=== PATIENT | male | born 1965 | race Caucasian/White ===

== ENCOUNTER 2016-09-27 09:34 | Emergency (ER) | payer MEDICAID ==
[2016-09-27 09:42] VITALS: BP 149/92; PULSE 101; RESP 18; TEMP 98.1; O2SAT 94
[2016-09-27] MEDS ORDERED: OXYCODONE/APAP 5/325 TAB PO ONE (09:56)
--- NOTE | 2016-09-27 10:00 | EDPHY ---
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 No instability. No direct trauma or fall. No paresthesia. No sensory motor deficit. PRIMARY CARE PROVIDER: [facility] REVIEW OF SYSTEMS: A ten point review of systems was performed and is negative with the exception of the items mentioned in the HPI PHYSICAL EXAM (Prior to examination, patient consented to physical exam, hands were washed and my usual and customary physical exam procedures followed) 1) GENERAL: Well-developed, well-nourished, alert and oriented. Appears nontoxic, observed ambulating to his exam room with antalgic gait 2) HEAD: Normocephalic 3) HEENT: Pupils equal, round, reactive to light bilaterally. 4) LUNGS: Breathing comfortably. 5) MUSCULOSKELETAL: Exam of the right knee shows soft tissue swelling, focally tender to palpation lateral knee. No pain with axial loading. Normal color normal temperature. . Compartments are soft. Negative Homans, No palpable cord 6) SKIN: normal color normal temperature 7) VASCULAR: DP,PT pulses and cap refill present and brisk distally DIFFERENTIAL DIAGNOSIS: in no particular order including but not limited to fracture, sprain, compartment syndrome, septic arthritis, DVT Procedure: Splint A knee immobilizer splint was applied by ER waste transportation technician. After application of the splint I returned and re-examined the patient. The splint was adequately immobilizing the joint and distal to the splint the patient's circulation and sensation were intact. Patient shows no signs of compartment syndrome. Was given orthopedic precautions. MEDICAL DECISION MAKING Serial evaluations performed on patient. Discussed case with in the ER. Recommended follow up with Orthopedics. I communicated electronically with on-call orthopedics Dr. Whitney who agrees with plan to follow up in office. I discussed the limitations of x-ray in diagnosis of knee pain and injury. At this time I do not think that emergent MRI is currently indicated. However, I have recommended follow-up with Orthopedic surgery and provided this referral information. Informed the patient that outpatient MRI may be indicated. Doubt septic arthritis. Doubt compartment syndrome. Doubt DVT. Smoking Status: Former smoker Constitutional: Initial Vital Signs Temperature (C) 36.7 C 09/27/16 09:35 Heart Rate 101 H 09/27/16 09:35 Respiratory Rate 18 09/27/16 09:35 Blood Pressure 149/92 H 09/27/16 09:35 O2 Sat (%) 94 09/27/16 09:35 O2 Delivery Mode Room Air Allergies/Adverse Reactions: No Known Allergies Allergy (Verified 09/27/16 09:37) Home Medications: Medication Instructions Recorded Carvedilol [Coreg (*)] 3.125 mg PO BIDMEAL #60 tab 03/26/14 Losartan Potassium [Cozaar 25 mg 25 mg PO DAILY #30 tab 03/26/14 (*)] Spironolactone [Aldactone 25 MG 25 mg PO DAILY #30 tab 03/26/14 (*)] Diazepam [Valium 5 MG (*)] 5 mg PO TID PRN #15 tab 02/24/15 Ibuprofen [Motrin (*)] 800 mg PO Q6-8PRN #30 tab 02/24/15 Ranitidine HCl 02/24/15 Trazapam 09/27/16 oxyCODONE/APAP 5/325 [Percocet 1 tab PO Q6 #10 tab 09/27/16 5/325] traZODone [traZODONE 50MG (*)] 50 mg PO 09/27/16 MDM/Departure - MDM Imaging Results: Imaging Impressions Knee X-Ray 09/27/16 09:56 Impression: Possible patellar fracture. Results called to Jairon Pierce at 10:28 AM. Images reviewed by myself Medications Given: Discontinued Medications Oxycodone/Acetaminophen (Percocet 5/325) 1 tab PO EDNOW ONE Stop: 09/27/16 09:57 Last Admin: 09/27/16 10:01 Dose: 1 tab - Depart Disposition: Home, Routine, Self-Care Clinical Impression: Right knee sprain Qualifiers: Encounter type: initial encounter Involved ligament of knee: unspecified ligament Qualified Code(s): S83.91XA - Sprain of unspecified site of right knee , initial encounter Condition: Good Instructions: Knee Sprain (ED) Additional Instructions: Return to the ER immediately if you experience discoloration, have worsening pain, numbness, tingling, or any other symptoms that concern you. If you received x-rays in the emergency department today, be advised, that ligamentous , tendon, muscular, and other non-bony injury cannot be fully ruled out. Try to keep your affected extremity elevated above the level of your chest, and keep cold packs on the affected area, for the next 48 hours. Prescriptions: oxyCODONE/APAP 5/325 [Percocet 5/325] 1 tab PO Q6 #10 tab Referrals: Arnoldo Whitney MD [Medical Doctor] - 2-3 days, call for appt. (Dr. Whitney is an orthopedic surgeon)
== END 2016-09-27 11:25 | disposition home or self-care (01) ==
DX: S83.91XA Sprain of unspecified site of right knee, initial encounter (principal); Z87.891 Personal history of nicotine dependence; X58.XXXA Exposure to other specified factors, initial encounter
CPT/HCPCS: L1830

== ENCOUNTER 2016-10-24 14:07 | Inpatient (IN) | payer MEDICAID ==
[2016-10-24] MEDS ORDERED: IPRATROPIUM/ALBUTEROL 3 ML DEYVIAL ONE (16:20)
[2016-10-24 16:27] LABS: % IMMATURE GRANULYOCYTES 0.1 % (0.0-1.1); ABSOLUTE IMMATURE GRANULOCYTES 0.01 10^3/uL (0.00-0.10); ADD DIFF? NO; ADD MORPH? NO; ADD SCAN? NO; ATYPICAL LYMPHOCYTE FLAG 20 (0-99); FRAGMENT RBC FLAG 0 (0-99); HEMOGLOBIN 15.1 g/dL (13.7-17.5); LEFT SHIFT FLG 0 (0-99); LIPEMIA HEMOLYSIS FLAG 80 (0-99); MEAN CELL HEMOGLOBIN 30.5 pg (27.9-34.1); MEAN CELL HEMOGLOBIN CONCENTR. 33.6 g/dL (32.4-36.7); MEAN CELL VOLUME 90.9 fL (81.5-99.8); MEAN PLATELET VOLUME 10.1 fL (8.7-11.7); PLATELET CLUMPS FLAG 10 (0-99); PLATELET COUNT 135 10^3/uL (150-400); RED BLOOD CELL COUNT 4.95 10^6/uL (4.40-6.38); RED CELL DISTRIBUTION WIDTH 13.2 % (11.5-15.2)
[2016-10-24 16:42] LABS: ANION GAP 8 mEq/L (8-16); CALCIUM 9.1 mg/dL (8.5-10.4); CARBON DIOXIDE 25 mEq/l (22-31); CHLORIDE 106 mEq/L (97-110); CREATININE 0.9 mg/dL (0.7-1.3); GLOMERULAR FILTRATION RATE > 60; GLUCOSE 96 mg/dL (70-100); POTASSIUM 4.3 mEq/L (3.5-5.2); SODIUM 139 mEq/L (134-144)
--- NOTE | 2016-10-24 16:49 | EDPHY ---
H & P Stated Complaint: DX PNA/was coughing so hard had syncopal event Time Seen by Provider: 10/24/16 16:46 HPI/ROS: CHIEF COMPLAINT: Cough, dyspnea HISTORY OF PRESENT ILLNESS: This patient is a 52 year old male who referred to the Emergency Department by [facility] for complaints of worsening cough beginning last Saturday, six days prior to arrival. He was diagnosed with pneumonia on chest x-ray today and started on doxycycline; he had his first dose this morning. Upon arrival, he describes frequent coughing fits associated with room-spinning dizziness and dyspnea. He denies chest pain, pedal edema, weakness, fever or chills. He has a history of prior RI in 2014. REVIEW OF SYSTEMS: A 10 point review of systems was performed and is negative with the exception of the elements mentioned in the history of present illness. Source: Patient - Personal History Current Tetanus/Diphtheria Vaccine: Yes Tetanus Vaccine Date: 2010 - Medical/Surgical History PMH: RI in 2014. No history of diabetes, hypertension, or hyperlipidemia. Followed by Dr. Mckeon, cardiology. Hx Asthma: Yes Hx Chronic Respiratory Disease: No Hx Diabetes: No Hx Cardiac Disease: Yes Hx Renal Disease: No Hx Cirrhosis: No Hx Alcoholism: No Hx HIV/AIDS: No Hx Splenectomy or Spleen Trauma: No Other PMH: CYST REMOVAL, RI 2014. neck issue. chronic back pain. previous inj to R knee - Social History Smoking Status: Former smoker Additional Social History: Drinks alcohol 1x weekly. Former smoker. at bedside. - Physical Exam Exam: General Appearance: Alert, no acute distress. * Eyes: Pupils equal and round, no conjunctival injection, no discharge. ENT, Mouth: Mucous membranes are moist, no oropharyngeal erythema or edema. Neck: No lymphadenopathy, supple. Respiratory: Diffuse wheezing. Cardiovascular: Regular rate and rhythm; no murmur, rub, or gallop. Gastrointestinal: Abdomen is soft and non tender, no masses or organomegaly, bowel sounds normal. Skin: Warm and dry, no rashes, normal color. Back: Nontender to palpation over the thoracolumbar spine. Extremities: No lower extremity edema, no calf tenderness or swelling. Neurological: Alert and oriented. Moving all four extremities easily and equally. Psychiatric: Normal affect. Constitutional: Initial Vital Signs Temperature (C) 36.9 C 10/24/16 14:21 Heart Rate 90 10/24/16 14:21 Respiratory Rate 22 H 10/24/16 14:21 Blood Pressure 139/85 H 10/24/16 14:21 O2 Sat (%) 92 10/24/16 14:21 O2 Delivery Mode Room Air O2 (L/minute) 3 Allergies/Adverse Reactions: No Known Allergies Allergy (Verified 10/24/16 14:18) Home Medications: Medication Instructions Recorded traZODone [traZODONE 50MG (*)] 50 mg PO HS 09/27/16 Albuterol Hfa Anes Only [Proair 2 puffs IH Q4H PRN 10/24/16 Hfa Icu (*)] Atorvastatin Calcium [Lipitor 40 40 mg PO DAILY 10/24/16 mg (*)] Spironolactone [Aldactone 25 MG 25 mg PO EVERY OTHER DAY 10/24/16 (*)] Temazepam [Restoril 15 MG (*)] 15 mg PO HS PRN 10/24/16 Carvedilol [Coreg (*)] 25 mg PO BID 10/25/16 Diazepam [Valium 5 MG (*)] 5 mg PO HS 10/25/16 Ranitidine HCl [Zantac] 150 mg PO BID 10/25/16 Benzocaine/Menthol 15/4 [Cepacol 1 ea PO PRN PRN #0 lozenge 10/27/16 Lozenge] Benzonatate [Tessalon Pearles (RX)] 100 mg PO Q6H #30 cap 10/27/16 Benzonatate [Tessalon Pearles] 100 mg PO TID PRN #30 cap 10/27/16 HYDROcodone/CPM TUSSIONEX 5 ml PO Q12 PRN #4 oz 10/27/16 [Tussionex Suspension (RX)] predniSONE 40 mg PO DAILY #6 tablet 10/27/16 predniSONE 40 mg PO DAILY #6 tablet 10/27/16 Medical Decision Making - Diagnostics EKG Interpretation: The 12 lead EKG was interpreted by myself: Sinus rhythm, rate 79. See hard copy and/or "tracemaster" electronic copy for interpretation. ED Course/Re-evaluation: This 52-year-old male presents with complaints of worsening productive cough since last Saturday with reported pneumonia on chest x-ray obtained at [facility] today. He is 98% on RA at time of arrival but with diffuse wheezing on exam. Will proceed with cardiac workup including chest x-ray, EKG, and labs. DuoNeb administered but he reports no subjective improvement to his breathing difficulties. Labs obtained and are within normal limits. 174: Chest x-ray reviewed by the radiologist reveals bronchitis with no definitive evidence of pneumonia. White blood cell count is within normal limits. I doubt that this is a bacterial pneumonia. The presentation is more consistent with reactive airways, bronchitis. I do not think that this is a cardiac problem at this time. I discussed these results with the patient. On reexamination, he has persistent diffuse wheezing. His O2 saturation has decreased to 89-91% on RA. Will proceed with albuterol neb. Additional albuterol neb administered. 1825: On reevaluation, the patient continues to complain of dyspnea. He is coughing and wheezing without improvement following two neb treatments. O2 sat 88% on RA, worse when lying flat. Given this persistent hypoxemia, plan for admission. 1907: Consultation with Dr. Kashmir Clifford, hospitalist, who accepts admission. Differential Diagnosis: Shortness of breath including but not limited to pulmonary infectious process, COPD, asthma, pulmonary embolus and congestive heart failure. - Data Points Laboratory Results: Laboratory Results 10/24/16 16:00 10/24/16 16:00 Medications Given: Discontinued Medications Albuterol (Proventil Neb) 3 ml IH EDNOW ONE Stop: 10/24/16 17:55 Last Admin: 10/24/16 18:07 Dose: 3 ml Albuterol/Ipratropium (Duoneb) 3 ml IH EDNOW ONE Stop: 10/24/16 17:55 Last Admin: 10/24/16 18:06 Dose: 3 ml Albuterol/Ipratropium (Duoneb) 3 ml IH QID BHARGAVI Stop: 04/23/17 05:59 Last Admin: 10/27/16 05:23 Dose: Not Given Atorvastatin Calcium (Lipitor) 40 mg PO DAILY [facility] Stop: 04/23/17 08:59 Last Admin: 10/27/16 09:36 Dose: 40 mg Benzonatate (Tessalon Pearles) 200 mg PO TID PRN PRN Reason: Cough, Mild Stop: 04/23/17 10:00 Last Admin: 10/25/16 10:14 Dose: 200 mg Calcium Carbonate (Tums) 500 - 1,000 mg PO Q4 PRN PRN Reason: HEARTBURN Stop: 04/23/17 08:49 Last Admin: 10/25/16 08:55 Dose: 1,000 mg Carvedilol (Coreg) 25 mg PO BID [facility] Stop: 04/23/17 10:14 Last Admin: 10/27/16 09:37 Dose: 25 mg Chlorphenir/Hydrocodone Polistirex (Tussionex Suspension) 5 ml PO Q12HRS PRN PRN Reason: Cough, Severe Stop: 04/25/17 08:46 Last Admin: 10/27/16 09:39 Dose: 5 ml Diazepam (Valium) 5 mg PO HS [facility] Stop: 04/23/17 20:59 Last Admin: 10/26/16 20:55 Dose: 5 mg Doxycycline Hyclate (Doxycycline Hyclate) 100 mg PO BID BHARGAVI PRN Reason: Protocol Stop: 11/23/16 21:44 Last Admin: 10/26/16 09:07 Dose: 100 mg Enoxaparin Sodium (Lovenox) 40 mg SC DAILY [facility] Stop: 04/23/17 08:59 Last Admin: 10/26/16 09:08 Dose: 40 mg Famotidine (Pepcid) 20 mg PO BID [facility] Stop: 04/23/17 10:14 Last Admin: 10/27/16 09:36 Dose: 20 mg Guaifenesin/Codeine Phosphate (Robitussin Ac) 10 ml PO Q6HRS PRN PRN Reason: Cough, Moderate Stop: 04/22/17 21:32 Last Admin: 10/26/16 16:28 Dose: 10 ml Ketorolac Tromethamine (Toradol) 15 mg IVP Q6HRS PRN PRN Reason: Chest Pain Stop: 10/30/16 11:59 Last Admin: 10/26/16 09:05 Dose: 15 mg Ketorolac Tromethamine (Toradol) 15 mg IVP ONCE ONE Stop: 10/26/16 10:53 Last Admin: 10/26/16 11:00 Dose: 15 mg Methylprednisolone Sodium Succinate (Solu-Medrol) 125 mg IVP EDNOW ONE Stop: 10/24/16 19:10 Last Admin: 10/24/16 19:43 Dose: 125 mg Oxycodone HCl (Oxycodone Ir) 5 - 10 mg PO Q6H PRN PRN Reason: Pain, Breakthrough Stop: 11/03/16 21:33 Last Admin: 10/26/16 05:55 Dose: 10 mg Oxycodone HCl (Oxycodone Ir) 5 - 10 mg PO Q4 PRN PRN Reason: Pain, Breakthrough Stop: 11/03/16 21:33 Last Admin: 10/26/16 20:55 Dose: 10 mg Prednisone (Prednisone) 40 mg PO DAILY BHARGAVI Stop: 04/23/17 08:59 Last Admin: 10/27/16 09:36 Dose: 40 mg Senna/Docusate Sodium (Senokot-S) 1 - 2 tab PO BID BHARGAVI PRN Reason: Protocol Stop: 04/24/17 20:59 Last Admin: 10/27/16 09:38 Dose: Not Given Spironolactone (Aldactone) 25 mg PO EVERY OTHER DAY BHARGAVI Stop: 04/24/17 08:59 Last Admin: 10/26/16 09:07 Dose: 25 mg Temazepam (Restoril) 15 mg PO HS PRN PRN Reason: Sleep/Insomnia Stop: 04/22/17 21:33 Last Admin: 10/26/16 20:56 Dose: 15 mg Throat Lozenges (Cepacol Lozenge) 1 ea PO PRN PRN PRN Reason: Sore Throat Stop: 04/24/17 10:56 Last Admin: 10/26/16 16:30 Dose: 1 ea Trazodone HCl (Trazodone) 50 mg PO HS BHARGAVI Stop: 04/22/17 22:14 Last Admin: 10/26/16 20:56 Dose: 50 mg Departure - Departure Disposition: [facility] Clinical Impression: Hypoxemia, Wheezing Condition: Fair Report Scribed for: Digna Boykin Report Scribed by: Priyanka Romo Date of Report: 10/24/16 Time of Report: 16:47 Physician Review and Approval Statement: 10/24/16 16:47 Portions of this note were transcribed by the auditor medical claims. I, Dr. Digna Boykin, personally performed the history, physical exam, and medical decision- making; and confirmed the accuracy of the information in the transcribed note.
[2016-10-24] MEDS ORDERED: IPRATROPIUM/ALBUTEROL 3 ML DEYVIAL IH ONE (17:54)
[2016-10-24] MEDS ORDERED: ALBUTEROL 3 ML DEYVIAL IH ONE (17:54)
[2016-10-24] MEDS ORDERED: methylPREDNISolone SOD SUCC 125 MG/2 ML VIAL IVP ONE (19:09)
--- NOTE | 2016-10-24 19:34 | CPEKG ---
Heart Rate: 75 RR Interval: 800 P-R Interval: 164 QRSD Interval: 100 QT Interval: 428 QTC Interval: 479 P Preston: 37 QRS Preston: 25 T Wave Preston: 251 EKG Severity - BORDERLINE ECG - EKG Impression: SINUS RHYTHM EKG Impression: BORDERLINE T ABNORMALITIES, DIFFUSE LEADS EKG Impression: BORDERLINE PROLONGED QT INTERVAL Electronically Signed By: Digna Boykin 24-Oct-2016 22:44:54
[2016-10-24] MEDS ORDERED: ONDANSETRON 4 MG/2 ML VIAL IVP PRN (21:32)
[2016-10-24] MEDS ORDERED: ALBUTEROL 3 ML DEYVIAL IH PRN (21:32)
[2016-10-24] MEDS ORDERED: ONDANSETRON DISINTEGRATING 4 MG TAB PO PRN (21:32)
[2016-10-24] MEDS ORDERED: ACETAMINOPHEN 325 MG TAB PO PRN (21:32)
[2016-10-24] MEDS: DOXYCYCLINE HYCLATE 100 MG CAP/TAB PO SCH (21:59)
[2016-10-24] MEDS: TEMAZEPAM 15 MG CAP PO PRN (21:59)
--- NOTE | 2016-10-24 22:11 | GHP ---
[f rep st] HISTORY AND PHYSICAL DATE OF ADMISSION: 10/24/2016 CHIEF COMPLAINT: Shortness of breath and cough. HISTORY OF PRESENT ILLNESS: This is a 51-year-old male, without a formal diagnosis of COPD, althoug h was a previous smoker. He states that about 6 days ago, he began developing an upper respiratory tract infection and then developed a dry cough essentially. This has been quite severe. He has als o been wheezing. He has some shortness of breath. Difficulty sleeping last night as well. No naus ea or vomiting. No chest pain. The patient was seen to [facility], and a chest x-ray there sh owed possible pneumonia. He was started on an antibiotic and told to come here. However, our chest x-ray here does not show any pneumonia. REVIEW OF SYSTEMS: A 10-point review of systems was obtained. Other than stated above, it is negat sreekanth. PAST MEDICAL HISTORY: 1. Coronary artery disease, but without any stenting. 2. Ischemic cardiomyopathy. 3. Insomnia. MEDICATIONS: Reviewed. SOCIAL HISTORY: Past smoker. FAMILY HISTORY: Reviewed and noncontributory. PHYSICAL EXAMINATION: VITAL SIGNS: Afebrile, blood pressure 131/88, heart rate 88, oxygen saturati on 88% on room air, 92% on 2 L. GENERAL: The patient is well developed and in no apparent distress . HEENT: Nonicteric sclerae. Extraocular movements intact. Moist mucous membranes. NECK: Suppl e. No thyromegaly. LUNGS: Good effort. Decreased breath sounds. Some slight coarse expiratory w heezes, but no rhonchi. CARDIOVASCULAR: Regular rate and rhythm. No murmurs, rubs, or gallops. A BDOMEN: Positive bowel sounds. Soft, nontender, nondistended. No hepatosplenomegaly. EXTREMITIES : No clubbing, cyanosis, or edema. SKIN: Without rash. Dry. Intact. NEUROLOGIC: Alert and ameena ented x3. Moving all 4 extremities equally. PSYCH: Normal affect. LABORATORY DATA: CBC is normal. Chemistry is essentially normal. Troponin is negative. EKG perso jr reviewed and interpreted: Some T-wave flattening laterally and inferiorly. Chest x-ray perso jr reviewed and interpreted: Does not show pneumonia, but does show bronchitis. ASSESSMENT: This is a 51-year-old male presenting with bronchitis and reactive airway disease. 1. Reactive airway disease exacerbation. The patient does not formally have a diagnosis of COPD, a lthough this has been noted in previous H and Ps. This probably is a viral infection-induced reacti ve airway exacerbation. We will continue with steroids and nebulizer treatments. There may be an e lement of superimposed bacterial bronchitis, although probably unlikely. However, we will continue his doxycycline. 2. History of coronary artery disease. Continue his medications. 3. History of ischemic cardiomyopathy. We will watch IV fluids. ADMISSION: The patient will be admitted under observation status. The case was discussed with the ER physician. Old records reviewed and summarized in the HPI. /[id number]/MODL
[2016-10-24] MEDS: traZODone 50 MG TAB PO SCH (22:20)
[2016-10-24] MEDS: guaiFENesin/CODEINE PHOS 10 ML UDCUP PO PRN (22:25)
[2016-10-25] MEDS: IPRATROPIUM/ALBUTEROL 3 ML DEYVIAL IH SCH ×4 (05:50→20:57)
[2016-10-25] MEDS: guaiFENesin/CODEINE PHOS 10 ML UDCUP PO PRN ×3 (06:00→21:17)
[2016-10-25] MEDS: oxyCODONE IR 5 MG TAB PO PRN ×3 (06:00→17:33)
[2016-10-25] MEDS ORDERED: CALCIUM CARBONATE 500 MG CHEWABLE TAB PO PRN (08:50)
[2016-10-25] MEDS: ATORVASTATIN CALCIUM 40 MG TAB PO SCH (08:55)
[2016-10-25] MEDS: predniSONE 20 MG TAB PO SCH (08:55)
[2016-10-25] MEDS: DOXYCYCLINE HYCLATE 100 MG CAP/TAB PO SCH ×2 (08:56→21:17)
[2016-10-25] MEDS: ENOXAPARIN 40 MG/0.4 ML SYR SC SCH (08:56)
--- NOTE | 2016-10-25 09:02 | HOSPPROG ---
Hospitalist Progress Note Assessment/Plan: #RAD exacerbation: no formal diagnosis of COPD. Bronchitis on CXR. + Parainfluenza 3. Supportive care with antitussives, IVFs, Cont nebs, doxy, pred #Acute hypoxemic resp failure: due to above #Pleuritic chest pain: trial Toradol #CAD: BB, statin #GERD: ranitidine #Diet: cardiac #DVT ppx: Lovenox #Disp: warrants inpatient admission with acute hypoxia, uncontrolled CP requiring nebs, IV pain control Subjective: pain in chest severe with cough. Still nnproducutive cough Objective: Vital Signs Temp Pulse Resp BP Pulse Ox 36.6 C 76 17 130/87 H 93 10/25/16 07:37 10/25/16 07:37 10/25/16 07:37 10/25/16 07:37 10/25/16 07:37 10/24/16 10/25/16 10/26/16 05:59 05:59 05:59 Intake Total 350 150 Output Total 2 Balance 348 150 - Physical Exam Constitutional: obese Eyes: PERRL Ears, Nose, Mouth, Throat: moist mucous membranes, hearing normal Cardiovascular: regular rate and rhythym Respiratory: no rales or rhonchi, expiratory wheeze, other (pain with coughing) Gastrointestinal: normoactive bowel sounds, soft, non-tender abdomen Genitourinary: no bladder fullness Skin: warm Musculoskeletal: full muscle strength Neurologic: AAOx3 Psychiatric: interacting appropriately ICD10 Worksheet Patient Problems: Problems Problem Status Onset Hypoxemia Acute Wheezing Acute COPD bronchitis Acute Coronary artery disease Acute Elevated troponin Acute Ischemic cardiomyopathy Acute
[2016-10-25] MEDS ORDERED: BENZONATATE 100 MG CAP PO PRN (10:01)
[2016-10-25] MEDS: KETOROLAC 15 MG/1 ML SDV IVP PRN ×2 (10:13→16:35)
[2016-10-25] MEDS: CARVEDILOL 25 MG TAB PO SCH ×2 (10:14→21:17)
[2016-10-25] MEDS ORDERED: NON-FORMULARY NEW DRUG (Ranitidine Hcl [Zantac] 150 MG) PO SCH (10:15)
[2016-10-25] MEDS: FAMOTIDINE 20 MG TAB PO SCH ×2 (10:18→21:17)
[2016-10-25] MEDS ORDERED: traZODone 50 MG TAB PO SCH (21:00)
[2016-10-25] MEDS: traZODone 50 MG TAB PO SCH (21:17)
[2016-10-25] MEDS: DIAZEPAM 5 MG TAB PO SCH (21:17)
[2016-10-25] MEDS: TEMAZEPAM 15 MG CAP PO PRN (21:21)
[2016-10-26] MEDS: IPRATROPIUM/ALBUTEROL 3 ML DEYVIAL IH SCH ×4 (05:28→21:18)
[2016-10-26] MEDS: oxyCODONE IR 5 MG TAB PO PRN ×4 (05:55→20:55)
[2016-10-26] MEDS ORDERED: SPIRONOLACTONE 25 MG TAB PO SCH (09:00)
[2016-10-26] MEDS: guaiFENesin/CODEINE PHOS 10 ML UDCUP PO PRN ×2 (09:03→16:28)
[2016-10-26] MEDS: KETOROLAC 15 MG/1 ML SDV IVP PRN (09:05)
[2016-10-26] MEDS: DOXYCYCLINE HYCLATE 100 MG CAP/TAB PO SCH (09:07)
[2016-10-26] MEDS: CARVEDILOL 25 MG TAB PO SCH ×2 (09:07→20:55)
[2016-10-26] MEDS: FAMOTIDINE 20 MG TAB PO SCH ×2 (09:07→20:55)
[2016-10-26] MEDS: ATORVASTATIN CALCIUM 40 MG TAB PO SCH (09:07)
[2016-10-26] MEDS: predniSONE 20 MG TAB PO SCH (09:08)
[2016-10-26] MEDS: ENOXAPARIN 40 MG/0.4 ML SYR SC SCH (09:08)
[2016-10-26] MEDS ORDERED: KETOROLAC 15 MG/1 ML SDV IVP ONE (10:52)
[2016-10-26] MEDS ORDERED: LACTULOSE 20 GM/30 ML UDCUP PO PRN (11:00)
[2016-10-26] MEDS ORDERED: BISACODYL 10 MG SUPP PR PRN (11:00)
[2016-10-26] MEDS ORDERED: POLYETHYLENE GLYCOL 3350 17 GM PKT PO PRN (11:00)
[2016-10-26] MEDS ORDERED: MAGNESIUM HYDROXIDE 30 ML UDCUP PO PRN (11:00)
[2016-10-26] MEDS: CEPACOL LOZENGE PO PRN ×2 (11:58→16:30)
[2016-10-26 12:01] LABS: ANION GAP 10 mEq/L (8-16); CALCIUM 9.2 mg/dL (8.5-10.4); CARBON DIOXIDE 27 mEq/l (22-31); CHLORIDE 104 mEq/L (97-110); CREATININE 0.9 mg/dL (0.7-1.3); GLOMERULAR FILTRATION RATE > 60; GLUCOSE 112 mg/dL (70-100); POTASSIUM 4.1 mEq/L (3.5-5.2); SODIUM 141 mEq/L (134-144)
--- NOTE | 2016-10-26 12:11 | CPEKG ---
Heart Rate: 79 RR Interval: 759 P-R Interval: 156 QRSD Interval: 104 QT Interval: 376 QTC Interval: 432 P Wainwright: 37 QRS Wainwright: 33 T Wave Wainwright: 237 EKG Severity - ABNORMAL ECG - EKG Impression: SINUS RHYTHM EKG Impression: NONSPECIFIC T ABNORMALITIES, DIFFUSE LEADS EKG Impression: NO SIG CHANGE COMPARED WITH Mar Electronically Signed By: Carissa Macias 26-Oct-2016 13:56:12
[2016-10-26] MEDS: DIAZEPAM 5 MG TAB PO SCH (20:55)
[2016-10-26] MEDS: SENNOSIDES/DOCUSATE SODIUM TAB PO SCH (20:55)
[2016-10-26] MEDS: TEMAZEPAM 15 MG CAP PO PRN (20:56)
[2016-10-26] MEDS: traZODone 50 MG TAB PO SCH (20:56)
--- NOTE | 2016-10-26 23:01 | HOSPPROG ---
Hospitalist Progress Note Assessment/Plan: #RAD exacerbation: no formal diagnosis of COPD. Bronchitis on CXR. + Parainfluenza 3. Supportive care with antitussives, IVFs, add Cepacl Cont nebs, doxy, pred #Acute hypoxemic resp failure: resolved #Pleuritic chest pain: uncontrolled. Increase Toradol #CAD: BB, statin #GERD: ranitidine #Diet: cardiac #DVT ppx: Lovenox #Disp: warrants inpatient admission with acute hypoxia, uncontrolled CP requiring nebs, IV pain control Subjective: cough so badly it brings him to tears Objective: Vital Signs Temp Pulse Resp BP Pulse Ox 36.5 C 68 16 134/82 H 92 10/26/16 19:54 10/26/16 21:20 10/26/16 21:20 10/26/16 19:54 10/26/16 21:20 Laboratory Results 10/26/16 11:31 - Physical Exam Constitutional: obese, uncomfortable Eyes: PERRL Ears, Nose, Mouth, Throat: moist mucous membranes, hearing normal Cardiovascular: regular rate and rhythym, no murmur, rub, or gallop Respiratory: expiratory wheeze Gastrointestinal: normoactive bowel sounds, soft, non-tender abdomen Skin: warm Musculoskeletal: full muscle strength Neurologic: AAOx3, CN II-XII Intact Psychiatric: interacting appropriately ICD10 Worksheet Patient Problems: Problems Problem Status Onset Hypoxemia Acute Wheezing Acute COPD bronchitis Acute Coronary artery disease Acute Elevated troponin Acute Ischemic cardiomyopathy Acute
[2016-10-27] MEDS: IPRATROPIUM/ALBUTEROL 3 ML DEYVIAL IH SCH (05:23)
--- NOTE | 2016-10-27 08:35 | HOSPPROG ---
Hospitalist Progress Note Assessment/Plan: #RAD exacerbation: no formal diagnosis of COPD. Bronchitis on CXR. + Parainfluenza 3. Supportive care with antitussives, IVFs, add Cepacl Cont nebs, doxy, pred #Acute hypoxemic resp failure: resolved #Pleuritic chest pain: uncontrolled. Increase Toradol #CAD: BB, statin #GERD: ranitidine #Diet: cardiac #DVT ppx: Lovenox #Disp: DC today Subjective: persistent cough Objective: Vital Signs Temp Pulse Resp BP Pulse Ox 36.5 C 77 16 129/85 H 90 L 10/26/16 23:29 10/26/16 23:29 10/26/16 23:29 10/26/16 23:29 10/26/16 23:29 Laboratory Results 10/26/16 11:31 - Physical Exam Constitutional: obese Eyes: PERRL Ears, Nose, Mouth, Throat: moist mucous membranes Cardiovascular: regular rate and rhythym Respiratory: other (less wheezing today) Gastrointestinal: normoactive bowel sounds Genitourinary: no bladder fullness Skin: warm Neurologic: AAOx3 ICD10 Worksheet Patient Problems: Problems Problem Status Onset COPD bronchitis Acute Coronary artery disease Acute Elevated troponin Acute Hypoxemia Acute Ischemic cardiomyopathy Acute Wheezing Acute
[2016-10-27] MEDS ORDERED: HYDROcodone/CPM TUSSIONEX 5 ML UDSYR PO PRN (08:47)
[2016-10-27] MEDS: predniSONE 20 MG TAB PO SCH (09:36)
[2016-10-27] MEDS: ATORVASTATIN CALCIUM 40 MG TAB PO SCH (09:36)
[2016-10-27] MEDS: FAMOTIDINE 20 MG TAB PO SCH (09:36)
[2016-10-27] MEDS: CARVEDILOL 25 MG TAB PO SCH (09:37)
[2016-10-27 09:38] VITALS: BP 146/92
[2016-10-27] MEDS: SENNOSIDES/DOCUSATE SODIUM TAB PO SCH (09:38)
[2016-10-27 09:46] VITALS: PULSE 67; RESP 20; TEMP 97.9; O2SAT 92
--- NOTE | 2016-10-27 13:04 | GDS ---
[f rep st] DISCHARGE SUMMARY DISCHARGE DIAGNOSES: 1. Acute hypoxic respiratory failure. 2. Parainfluenza 3 viral infection. 3. Reactive airway disease exacerbation. 4. Pleuritic chest pain. 5. Coronary artery disease. 6. Gastroesophageal reflux disease. HISTORY OF PRESENT ILLNESS: The patient is a 51-year-old male without a formal diagnosis of COPD with prior history of smoking, CAD, presenting after having an upper respiratory infection for 6 days. He then developed a persistent dry cough, has been very severe that he has fallen down due to the coughing. He has had some mild shortness of breath. No nausea or vomiting. HOSPITAL COURSE: 1. Acute hypoxic respiratory failure: Secondary to reactive airway disease exacerbation. No formal diagnosis but has a tobacco history. This was triggered by parainfluenza. The patient was treated supportively with IV fluids , nebs, pred, and antitussives. 2. Parainfluenza: Again, supportive treatment as above. 3. Pleuritic chest pain: This was the main reason for patient's presentation. He kept stating he felt like he needed to cough up something but could not. Trialed both oxycodone and Toradol as well as Tessalon Perles. We will trial Tussionex suspension, discharge with Tessalon Perles. 4. Acute hypoxic respiratory failure, now resolved. 5. CAD: Continue on home medications. 6. Compensated ischemic cardiomyopathy: Continue on home medications. DISPOSITION: Patient is stable for discharge, stable on room air now, to continue supportive care at home. FOLLOWUP: Primary care physician. /[id number]/MODL MTDD
== END 2016-10-27 10:36 | disposition home or self-care (01) | DRG 189 ==
LOC: F3E 20:27 → OBSVTOIN 10-25 16:16
PROVIDERS: ADMIT Internal Medicine; ATTEND Internal Medicine
DX: J96.01 Acute respiratory failure with hypoxia (principal); J45.901 Unspecified asthma with (acute) exacerbation; J20.4 Acute bronchitis due to parainfluenza virus; I25.10 Atherosclerotic heart disease of native coronary artery without angina pectoris; K21.9 Gastro-esophageal reflux disease without esophagitis; I25.2 Old myocardial infarction; Z87.891 Personal history of nicotine dependence
CPT/HCPCS: G0378; J1650; J1885

== ENCOUNTER 2017-03-06 13:49 | Inpatient (IN) | payer MEDICAID ==
[2017-03-06] MEDS ORDERED: ONDANSETRON 4 MG/2 ML VIAL IVP PRN (14:51)
[2017-03-06] MEDS ORDERED: ONDANSETRON DISINTEGRATING 4 MG TAB PO PRN (14:51)
[2017-03-06] MEDS ORDERED: ACETAMINOPHEN 325 MG TAB PO PRN (14:51)
[2017-03-06] MEDS ORDERED: GUAIFENESIN/DM 10 ML UDCUP PO PRN (15:16)
[2017-03-06 15:38] LABS: % IMMATURE GRANULYOCYTES 0.3 % (0.0-1.1); ABSOLUTE IMMATURE GRANULOCYTES 0.02 10^3/uL (0.00-0.10); ADD DIFF? NO; ADD MORPH? NO; ADD SCAN? NO; ATYPICAL LYMPHOCYTE FLAG 10 (0-99); FRAGMENT RBC FLAG 0 (0-99); HEMATOCRIT 48.8 % (40.0-51.0); HEMOGLOBIN 16.3 g/dL (13.7-17.5); LEFT SHIFT FLG 0 (0-99); LIPEMIA HEMOLYSIS FLAG 80 (0-99); MEAN CELL HEMOGLOBIN 31.5 pg (27.9-34.1); MEAN CELL HEMOGLOBIN CONCENTR. 33.4 g/dL (32.4-36.7); MEAN CELL VOLUME 94.4 fL (81.5-99.8); MEAN PLATELET VOLUME 10.5 fL (8.7-11.7); PLATELET CLUMPS FLAG 0 (0-99); PLATELET COUNT 139 10^3/uL (150-400); RED BLOOD CELL COUNT 5.17 10^6/uL (4.40-6.38); RED CELL DISTRIBUTION WIDTH 13.6 % (11.5-15.2)
--- NOTE | 2017-03-06 16:13 | PDGENHP ---
History and Physical - Chief Complaint Short of breath, syncope - History of Present Illness 52-year-old male history of ischemic cardiomyopathy, last ejection fraction 45% , several week history of progressive shortness of breath green sputum, severe weight loss of up to 20 lb associated with an episode of syncope last evening. Patient has been having nocturnal fever and chills. He is admitted to the hospital for evaluation of syncope, worsening heart failure, and possible pneumonia. Patient denies angina, PND, orthopnea. He has been under considerable stress related to separation from his long-time girlfriend. Patient denies extensive alcohol use. History Information - Allergies/Home Medication List Allergies/Adverse Reactions: No Known Allergies Allergy (Verified 10/24/16 14:18) Home Medications: traZODone [traZODONE 50MG (*)] 50 mg PO HS 09/27/16 [Last Taken Unknown] Albuterol Hfa Anes Only [Proair Hfa Icu (*)] 2 puffs IH Q4H PRN 10/24/16 [Last Taken Unknown] Atorvastatin Calcium [Lipitor 40 mg (*)] 40 mg PO DAILY 10/24/16 [Last Taken Unknown] Spironolactone [Aldactone 25 MG (*)] 25 mg PO EVERY OTHER DAY 10/24/16 [Last Taken Unknown] Temazepam [Restoril 15 MG (*)] 15 mg PO HS PRN 10/24/16 [Last Taken Unknown] Carvedilol [Coreg (*)] 25 mg PO BID 10/25/16 [Last Taken Unknown] Diazepam [Valium 5 MG (*)] 5 mg PO HS 10/25/16 [Last Taken Unknown] Ranitidine HCl [Zantac] 150 mg PO BID 10/25/16 [Last Taken Unknown] I have personally reviewed and updated: family history, medical history, social history - Past Medical History coronary artery disease, hypertension, hyperlipidemia - Surgical History Reports: no pertinent surgical hx, angioplasty, coronary stent - Family History Positive for: non-pertinent - Social History Smoking Status: Former smoker Alcohol Use: Occasionally Drug Use: None Review of Systems Review of Systems: Constitutional: Reports: chills, malaise EENMT: Reports: nose congestion Cardiac: Reports: lightheadedness, palpitations, syncope Respiratory: Reports: cough, shortness of breath, wheezing Gastrointestinal: Reports: other (Weight loss) Genitourinary: Reports: no symptoms Muscolosketal: Reports: no symptoms Skin: Reports: no symptoms Neurological: Reports: anxiety, depressed, other (Difficulty sleeping) Hematologic/Lymphatic: Reports: no symptoms Immunologic/Allergy: Reports: no symptoms Physical Exam Physical Exam: Temp Pulse Resp BP Pulse Ox 36.8 C 76 12 163/102 H 91 L 03/06/17 14:40 03/06/17 14:40 03/06/17 14:40 03/06/17 14:40 03/06/17 14:40 Lab Data & Imaging Review 03/06/17 15:25 03/06/17 15:25 WBC 6.63 10^3/uL (3.80-9.50) 03/06/17 15:25 RBC 5.17 10^6/uL (4.40-6.38) 03/06/17 15:25 Hgb 16.3 g/dL (13.7-17.5) 03/06/17 15:25 Hct 48.8 % (40.0-51.0) 03/06/17 15:25 MCV 94.4 fL (81.5-99.8) 03/06/17 15:25 MCH 31.5 pg (27.9-34.1) 03/06/17 15:25 MCHC 33.4 g/dL (32.4-36.7) 03/06/17 15:25 RDW 13.6 % (11.5-15.2) 03/06/17 15:25 Plt Count 139 10^3/uL (150-400) L 03/06/17 15:25 MPV 10.5 fL (8.7-11.7) 03/06/17 15:25 Neut % (Auto) 63.8 % (39.3-74.2) 03/06/17 15:25 Lymph % (Auto) 26.1 % (15.0-45.0) 03/06/17 15:25 [place] % (Auto) 6.6 % (4.5-13.0) 03/06/17 15:25 Eos % (Auto) 2.4 % (0.6-7.6) 03/06/17 15:25 Baso % (Auto) 0.8 % (0.3-1.7) 03/06/17 15:25 Nucleat RBC Rel Count 0.0 % (0.0-0.2) 03/06/17 15:25 Absolute Neuts (auto) 4.23 10^3/uL (1.70-6.50) 03/06/17 15:25 Absolute Lymphs (auto) 1.73 10^3/uL (1.00-3.00) 03/06/17 15:25 Absolute Monos (auto) 0.44 10^3/uL (0.30-0.80) 03/06/17 15:25 Absolute Eos (auto) 0.16 10^3/uL (0.03-0.40) 03/06/17 15:25 Absolute Basos (auto) 0.05 10^3/uL (0.02-0.10) 03/06/17 15:25 Absolute Nucleated RBC 0.00 10^3/uL (0-0.01) 03/06/17 15:25 Immature Gran % 0.3 % (0.0-1.1) 03/06/17 15:25 Immature Gran # 0.02 10^3/uL (0.00-0.10) 03/06/17 15:25 Visualized and Interpreted Chest x-ray results: Yes Chest X-Ray results: other (Atelectasis with cardiomegaly) EKG additional interpertation: Pending Assessment & Plan Assessment: 1. Syncope query post tussive versus arrhythmia. 2. Shortness of breath, fatigue query heart failure versus acute bronchitis. 3. Coronary artery disease history of PCI. 4. Chronic systolic heart failure with ejection fraction of 45%. 5. Bronchitis 6. Depression/anxiety related to home situation. 7. Weight loss of uncertain etiology. Plan: Admission to the hospital with focused laboratory assessment. Repeat echocardiogram for assessment of LV function. Gentle diuresis. Aggressive antitussives and beta agonist. Will hold on antibiotics at this point. Past Medical History PMH: - Personal History Tetanus Vaccine Date: 2010 - Medical/Surgical History Hx Asthma: Yes Hx Chronic Respiratory Disease: Yes Hx Cardiac Disease: Yes Hx Diabetes: No Hx Renal Disease: No Hx Alcoholism: No Hx Cirrhosis: No Hx HIV/AIDS: No Hx Splenectomy or Spleen Trauma: No Other PMH: [place]ST REMOVAL, [place] 2014 w/ stents, CAD. neck issue. chronic back pain. previous inj to R knee, GERD, COPD - Social History Smoking Status: Former smoker Additional Social History:
[2017-03-06 16:16] LABS: ALANINE AMINOTRANSFERASE 30 IU/L (21-72); ALBUMIN 3.9 g/dL (3.5-5.0); ALKALINE PHOSPHATASE 59 IU/L (38-126); ANION GAP 9 mEq/L (8-16); ASPARTATE AMINOTRANSFERASE 23 IU/L (17-59); BILIRUBIN,TOTAL 0.5 mg/dL (0.1-1.4); CALCIUM 9.1 mg/dL (8.5-10.4); CARBON DIOXIDE 29 mEq/l (22-31); CHLORIDE 102 mEq/L (97-110); CREATININE 0.9 mg/dL (0.7-1.3); GLOMERULAR FILTRATION RATE > 60; GLUCOSE 116 mg/dL (70-100); MAGNESIUM 1.9 mg/dL (1.6-2.3); POTASSIUM 4.4 mEq/L (3.5-5.2); SODIUM 140 mEq/L (134-144); TOTAL PROTEIN 7.1 g/dL (6.3-8.2)
--- NOTE | 2017-03-06 16:19 | CPEKG ---
Heart Rate: 77 RR Interval: 779 P-R Interval: 160 QRSD Interval: 100 QT Interval: 460 QTC Interval: 521 P [place]: 49 QRS [place]: 44 T Wave [place]: 32 EKG Severity - ABNORMAL ECG - EKG Impression: SINUS RHYTHM EKG Impression: PROLONGED QT INTERVAL Electronically Signed By: Kristofer Torres 06-Mar-2017 19:29:25
[2017-03-06 16:29] LABS: CREATINE KINASE-MB FRACTION 0.53 ng/mL (0.00-3.19); TROPONIN I < 0.012 ng/mL (0.000-0.034)
--- NOTE | 2017-03-06 16:29 | ECHO ---
[email or web address] [address] [address] Main: [phone] Fax: [email or web address] Echocardiogram Name: LENNOX CARO MR#: [id number] Study Date: 03/06/2017 Study Time: 03:12 PM Date of : 1965 Age: 52 year(s) Height: 170.2 cm (67 in.) Weight: 105.69 kg (233 lb.) BSA: 2.16 m2 Gender: Male Examination: Echo Indication: Pneumonia, Shortness of breath Image Quality: Contrast: Requested by: Rajendra Mckeon BP: 132 mmHg/101 mmHg Heart Rate: Rhythm: Indication: Pneumonia, Shortness of breath Procedure Staff Laborer Electroplating: Blane Bellamy Reading Physician: Blaise Pemberton Requesting Provider: Conclusions: Mildly dilated left ventricle. Akinesis of the basal inferior and posterorlaterl pena. The ejection fraction is estimated to be 30-35 %. There are no significant valvular abnormalities. Measurements: Chambers Valvular Assessment AV/MV Valvular Assessment TV/PV Normal Normal Normal Name Value Range Name Value Range Name Value Range Ao Radha (MM): 3.9 cm (2.2 cm-3.7 AV Vmax: 1.15 m/s (1 m/s-1.7 PV Vmax: 0.71 m/s (0.6 m/s-0.9 cm) m/s) m/s) IVSd (2D): 1.2 cm (0.6 cm-1.1 AV maxP mmHg ( - ) PV PGmax: 2 mmHg ( - ) cm) LVOT Vmax: 0.60 m/s (0.7 m/s-1.1 LVDd (2D): 6.3 cm (4.2 cm-5.9 m/s) cm) MV E Vmax: 0.80 m/s ( - ) LVDs (2D): 5.4 cm (2.1 cm-4 cm) LVPWd (2D): 1.4 cm (0.6 cm-1 cm) LVEF (BP): 35 % (>=55 %) Visual EF: 30 % EF Range: 30-35 % Continued Measurements: Valvular Assessment AV/MV Name Value MV E' Septal: 0.03 m/s MV E/E' Septal: 27.40 MV E/E' Lateral: 17.50 Patient: LENNOX CARO Study Date: 03/06/2017 Page 1 of 2 03:12 PM Findings: Left Ventricle: Mildly dilated left ventricle. Akinesis of the basal inferior and posterorlaterl pena. Moderately reduced systolic LV function. The ejection fraction is estimated to be 30-35 %. The ejection fraction is visually estimated to be 30 %. All scored wall segments are hypokinetic. Right Ventricle: Normal size right ventricle. Normal RV function. Left Atrium: The left atrium is normal in size. Right Atrium: The right atrium is normal in size. Mitral Valve: The mitral valve is normal in appearance. The mitral valve is normal in appearance and function. Aortic Valve: The aortic valve is normal in appearance and function. Tricuspid Valve: The tricuspid valve is normal in appearance and function. Pulmonic Valve: Pulmonary valve not visualized. Aorta: The aorta is normal. Pericardium: No pericardial effusion. (No Signature Object) Wall Motion Scores Patient: LENNOX CARO Study Date: 03/06/2017 Page 2 of 2 03:12 PM [id number]
[2017-03-06] MEDS: IPRATROPIUM/ALBUTEROL 4GM MDI IH SCH ×2 (17:24→21:12)
[2017-03-06] MEDS: CODEINE SULF 30 MG TAB PO PRN (17:51)
[2017-03-06] MEDS: CARVEDILOL 25 MG TAB PO SCH ×2 (17:52→18:12)
[2017-03-06] MEDS: FUROSEMIDE 20 MG/2 ML VIAL IVP SCH (17:52)
[2017-03-06 18:36] LABS: COLOR YELLOW; LEUKOCYTE ESTERASE,URINE NEGATIVE (NEGATIVE); NITRITE,URINE NEGATIVE (NEGATIVE)
[2017-03-06] MEDS: FAMOTIDINE 20 MG TAB PO SCH (20:30)
[2017-03-06] MEDS: DIAZEPAM 5 MG TAB PO SCH (20:30)
[2017-03-06] MEDS: traZODone 50 MG TAB PO SCH (20:30)
[2017-03-06] MEDS ORDERED: NON-FORMULARY NEW DRUG (Ranitidine Hcl [Zantac] 150 MG) PO SCH (21:00)
[2017-03-06] MEDS ORDERED: KETOROLAC 15 MG/1 ML SDV IVP ONE ×2 (21:00→23:00)
[2017-03-06] MEDS: TEMAZEPAM 15 MG CAP PO PRN (21:17)
[2017-03-07] MEDS: IPRATROPIUM/ALBUTEROL 4GM MDI IH SCH ×4 (05:09→22:32)
[2017-03-07] MEDS: CODEINE SULF 30 MG TAB PO PRN ×3 (05:36→22:35)
[2017-03-07] MEDS: ATORVASTATIN CALCIUM 40 MG TAB PO SCH (08:09)
[2017-03-07] MEDS: CARVEDILOL 25 MG TAB PO SCH ×2 (08:10→18:25)
[2017-03-07] MEDS: FAMOTIDINE 20 MG TAB PO SCH ×2 (08:10→18:28)
[2017-03-07] MEDS: FUROSEMIDE 20 MG/2 ML VIAL IVP SCH (08:10)
[2017-03-07] MEDS: ENOXAPARIN 40 MG/0.4 ML SYR SC SCH (08:19)
--- NOTE | 2017-03-07 09:01 | SOAPPROG ---
SOAP Progress Note Assessment/Plan: Assessment: 1. Coronary artery disease. He has a known occluded right coronary artery collateralized from the left system. This is associated with findings of a previous inferior infarct. At the present time, his CAD appears stable. Last coronary angiogram was March of 2016. 2. Ischemic cardiomyopathy. His ejection fraction is approximately 30-35%. This represents deterioration from prior estimations. Despite this, he does not appear to be in overt heart failure today. 3. Bronchitis. Probably viral in nature. This is associated with a productive cough and severe musculoskeletal chest discomfort. 4. Hypertension. Poorly controlled at the present time. 5. Hyperlipidemia. Currently on statin therapy. Since admission his cough has improved in the frequency and intensity however he continues to have significant musculoskeletal chest discomfort during periods of time that he is coughing. There is no indication currently that he has pneumonia. Additionally, there is no indication that he has significant congestive heart failure. His chest discomfort does appear to be musculoskeletal. Plan: 1. I will transition him over to a longer acting form of Mucinex. 2. Tessalon Perles and codeine for cough suppression. 3. I have written for ibuprofen for pain control. 4. He will continue on inhaled bronchodilators. 5. I have added Cozaar for additional blood pressure control. 6. Will continue to monitor him. I anticipate we might be able to discharge him home tomorrow. 03/07/17 08:58 Subjective: Today he notes that the frequency and intensity of his cough has improved. He does complain of ongoing musculoskeletal chest pain when he takes a deep breath or coughs. He had chills earlier this morning. Objective: Vital Signs Temp Pulse Resp BP Pulse Ox 36.6 C 66 22 H 150/97 H 98 03/07/17 08:27 03/07/17 08:10 03/07/17 07:42 03/07/17 08:10 03/07/17 07:42 Laboratory Results 03/06/17 15:25 03/06/17 15:25 03/06/17 03/07/17 03/08/17 05:59 05:59 05:59 Intake Total 640 Output Total 1275 Balance -635 Physical Exam - Physical Exam General Appearance: WD/WN, no apparent distress Neck: non-tender, full range of motion Respiratory: lungs clear, No crackles, No rales, No rhonchi Cardiac/Chest: regular rate, rhythm, No edema, No gallop, No JVD Peripheral Pulses: 2+: carotid (R), carotid (L) Abdomen: non-tender Male Genitalia: deferred Rectal: deferred Neuro/Psych: alert, oriented x 3 ICD10 Worksheet Patient Problems: Problems Problem Status Onset COPD bronchitis Acute Elevated troponin Acute Coronary artery disease Acute Ischemic cardiomyopathy Acute Hypoxemia Acute Wheezing Acute
[2017-03-07] MEDS: IBUPROFEN 600 MG TAB PO PRN ×2 (09:59→16:29)
[2017-03-07] MEDS: LOSARTAN POTASSIUM 25 MG TAB PO SCH (10:00)
[2017-03-07] MEDS: guaiFENesin 600 MG TAB.ER PO SCH ×2 (10:01→10:02)
--- NOTE | 2017-03-07 13:41 | ASMTCMCOM ---
CM Note CM Note Notes: Chart reviewed. Discussed with patient's RN. Patient to dc tomorrow. No needs identified. CM available if needs arise. Date Signed: 03/07/2017 01:41 PM Electronically Signed By:Kassy Carpenter RN
[2017-03-07] MEDS: OXYCODONE/APAP 5/325 TAB PO PRN ×2 (18:28→22:36)
[2017-03-07] MEDS: traZODone 50 MG TAB PO SCH (22:36)
[2017-03-07] MEDS: DIAZEPAM 5 MG TAB PO SCH (22:36)
[2017-03-07] MEDS: TEMAZEPAM 15 MG CAP PO PRN (22:39)
[2017-03-08] MEDS: GUAIFENESIN/DM 10 ML UDCUP PO PRN ×3 (01:23→22:09)
[2017-03-08] MEDS: IBUPROFEN 600 MG TAB PO PRN ×2 (01:24→07:42)
[2017-03-08] MEDS: IPRATROPIUM/ALBUTEROL 4GM MDI IH SCH ×4 (05:05→21:15)
[2017-03-08] MEDS: ENOXAPARIN 40 MG/0.4 ML SYR SC SCH (07:28)
[2017-03-08] MEDS: CARVEDILOL 25 MG TAB PO SCH ×2 (07:29→17:21)
[2017-03-08] MEDS: FAMOTIDINE 20 MG TAB PO SCH ×2 (07:30→22:00)
[2017-03-08] MEDS: SPIRONOLACTONE 25 MG TAB PO SCH (07:30)
[2017-03-08] MEDS: ATORVASTATIN CALCIUM 40 MG TAB PO SCH (07:30)
[2017-03-08] MEDS: OXYCODONE/APAP 5/325 TAB PO PRN ×4 (07:43→22:00)
[2017-03-08] MEDS ORDERED: AZITHROMYCIN 250 MG TAB PO ONE (08:48)
--- NOTE | 2017-03-08 09:37 | SOAPPROG ---
[facility] Progress Note Assessment/Plan: Assessment: 1. Coronary artery disease. He has a known occluded right coronary artery collateralized from the left system. This is associated with findings of a previous inferior infarct. At the present time, his CAD appears stable. Last coronary angiogram was March of 2016. 2. Ischemic cardiomyopathy. His ejection fraction is approximately 30-35%. This represents deterioration from prior estimations. Despite this, he does not appear to be in overt heart failure today. 3. Bronchitis. Probably viral in nature. This is associated with a productive cough and severe musculoskeletal chest discomfort. 4. Hypertension. Poorly controlled at the present time. 5. Hyperlipidemia. Currently on statin therapy. He has shown a little bit of improvement since admission. Does, however, continued to manifest chest wall discomfort and cough. Previously noted symptoms of wheezing have improved. His workup thus far would indicate that his diagnosis is likely bronchitis. It is not clear whether not this is viral or bacterial. I did have a curbside consultation with Dr. Chase Lee from pulmonology. Plan: 1. Will start azithromycin 500 mg today followed by 250 mg daily for an additional 4 days. 2. I put him on a prednisone taper. He will take 40 mg for the next 3 days, 20 mg for 3 days and 10 mg for the following 3 days. After that this medication will be discontinued. 3. I started him on a low-dose of Lasix 20 mg daily by mouth. 4. Will plan to check basic labs tomorrow. 5. His cardiac medications will be continued. As an outpatient, we will need to continue to up titrate his heart failure medications and monitor his ejection fraction. At some point, we may need to consider ICD implantation. 03/08/17 09:36 Subjective: He continues to complain of paroxysms of cough. Apparently, earlier this morning he had another episode where he coughed for several minutes. This resulted in transient dizziness. He also continues to have diffuse chest wall and abdominal discomfort that is worse with cough and movement. There have been no fevers. On telemetry he has not manifested any arrhythmias. He gives no history of orthopnea or PND. He does, complain of ongoing symptoms of dyspnea. He had bedside pulmonary function tests done yesterday. Unfortunately , we are not able to locate the results of this test. Objective: Vital Signs Temp Pulse Resp BP Pulse Ox 36.4 C 84 15 135/89 H 91 L 03/08/17 07:25 03/08/17 07:29 03/08/17 07:25 03/08/17 07:29 03/08/17 07:25 Laboratory Results 03/06/17 15:25 03/06/17 15:25 03/07/17 03/08/17 03/09/17 05:59 05:59 05:59 Intake Total 640 700 Output Total 1275 200 Balance -635 500 Physical Exam - Physical Exam General Appearance: WD/WN, no apparent distress Neck: non-tender, full range of motion Respiratory: lungs clear, normal breath sounds Cardiac/Chest: regular rate, rhythm, No edema, No gallop, No JVD Peripheral Pulses: 2+: carotid (R), carotid (L) Abdomen: soft Male Genitalia: deferred Rectal: deferred ICD10 Worksheet Patient Problems: Problems Problem Status Onset COPD bronchitis Acute Coronary artery disease Acute Elevated troponin Acute Hypoxemia Acute Ischemic cardiomyopathy Acute Wheezing Acute
[2017-03-08] MEDS: FUROSEMIDE 20 MG TAB PO SCH (11:13)
[2017-03-08] MEDS: predniSONE 20 MG TAB PO SCH (11:14)
[2017-03-08] MEDS: CODEINE SULF 30 MG TAB PO PRN ×2 (11:20→17:21)
[2017-03-08] MEDS: LOSARTAN POTASSIUM 25 MG TAB PO SCH (11:20)
[2017-03-09] MEDS: DIAZEPAM 5 MG TAB PO SCH (00:09)
[2017-03-09] MEDS: CODEINE SULF 30 MG TAB PO PRN ×4 (00:09→23:02)
[2017-03-09] MEDS: traZODone 50 MG TAB PO SCH ×2 (00:09→23:25)
[2017-03-09] MEDS: IBUPROFEN 600 MG TAB PO PRN (00:09)
[2017-03-09] MEDS: IPRATROPIUM/ALBUTEROL 4GM MDI IH SCH ×4 (05:10→19:58)
[2017-03-09] MEDS: FAMOTIDINE 20 MG TAB PO SCH ×2 (08:25→17:55)
[2017-03-09] MEDS: FUROSEMIDE 20 MG TAB PO SCH (08:31)
[2017-03-09] MEDS: predniSONE 20 MG TAB PO SCH (08:31)
[2017-03-09] MEDS: AZITHROMYCIN 250 MG TAB PO SCH (08:35)
[2017-03-09] MEDS: CARVEDILOL 25 MG TAB PO SCH ×2 (08:35→17:50)
[2017-03-09] MEDS: ATORVASTATIN CALCIUM 40 MG TAB PO SCH (08:35)
[2017-03-09] MEDS: ENOXAPARIN 40 MG/0.4 ML SYR SC SCH (08:38)
[2017-03-09] MEDS: GUAIFENESIN/DM 10 ML UDCUP PO PRN ×2 (08:50→20:48)
[2017-03-09] MEDS: OXYCODONE/APAP 5/325 TAB PO PRN ×3 (08:50→20:47)
[2017-03-09] MEDS: LOSARTAN POTASSIUM 25 MG TAB PO SCH (08:53)
[2017-03-09 09:09] LABS: ANION GAP 11 mEq/L (8-16); CALCIUM 9.4 mg/dL (8.5-10.4); CARBON DIOXIDE 26 mEq/l (22-31); CHLORIDE 102 mEq/L (97-110); CREATININE 0.8 mg/dL (0.7-1.3); GLOMERULAR FILTRATION RATE > 60; GLUCOSE 88 mg/dL (70-100); POTASSIUM 4.2 mEq/L (3.5-5.2); SODIUM 139 mEq/L (134-144)
[2017-03-09] MEDS ORDERED: KETOROLAC 30 MG/1 ML SDV IVP ONE (11:00)
--- NOTE | 2017-03-09 11:29 | SOAPPROG ---
SOAP Progress Note Assessment/Plan: Assessment: 1. Acute bronchitis. 2. Chronic systolic heart failure with deterioration in ejection fraction to 30- 35%. 3. Coronary artery disease status post PCI of the right coronary. 4. Hypertension. 5. Hyperlipidemia. Impression: Slow and steady improvement. Continued persistent pleuritic chest pain associated with productive sputum. Pain relatively well controlled with Percocet. Continues slow and gentle diuresis. Plan: Discontinue telemetry. One more day of hospitalization with aggressive beta agonists. Considerations for outpatient implantation of a ICD if LV function not improving. Increase Cozar to 50 mg daily. 03/09/17 11:25 03/09/17 11:29 Subjective: Feeling somewhat better. Continued chest pain. Continued shortness of breath with productive sputum/cough. Losing weight appropriately. Denies angina, PND, orthopnea. No syncope or near syncope. Objective: Vital Signs Temp Pulse Resp BP Pulse Ox 36.6 C 73 17 152/96 H 87 L 03/09/17 08:00 03/09/17 08:00 03/09/17 08:00 03/09/17 08:00 03/09/17 08:00 Laboratory Results 03/06/17 15:25 03/09/17 08:40 03/08/17 03/09/17 03/10/17 05:59 05:59 05:59 Intake Total 700 Output Total 200 400 Balance 500 -400 Medications Generic Name Dose Route Start Last Admin Trade Name Freq PRN Reason Stop Dose Admin Albuterol/Ipratropium 1 inh 03/06/17 17:15 03/09/17 10:[address] [facility] 09/02/17 17:14 1 puffs QID [facility] Codeine Sulfate 30 mg 03/06/17 15:17 03/09/17 11:00 Codeine PO 03/16/17 15:16 30 mg Q6HRS PRN Pain, Moderate Able to Take PO Enoxaparin Sodium 40 mg 03/07/17 09:00 03/09/17 08:38 Lovenox SC 09/03/17 08:59 40 mg DAILY [facility] Famotidine 20 mg 03/06/17 21:00 03/09/17 08:25 Pepcid PO 09/02/17 20:59 20 mg BID [facility] Atorvastatin Calcium 40 mg 03/07/17 09:00 03/09/17 08:35 Lipitor PO 09/03/17 08:59 40 mg DAILY [facility] Azithromycin 250 mg 03/09/17 09:00 03/09/17 08:35 Zithromax PO 04/08/17 08:59 250 mg DAILY [facility] Protocol Benzonatate 200 mg 03/07/17 08:32 Tessalon Pearles PO 09/03/17 08:31 TID PRN Cough, Mild Carvedilol 25 mg 03/06/17 18:00 03/09/17 08:35 Coreg PO 09/02/17 17:59 25 mg BIDMEAL BHARGAVI Diazepam 5 mg 03/06/17 21:00 03/09/17 00:09 Valium PO 09/02/17 20:59 5 mg HS BHARGAVI Furosemide 20 mg 03/08/17 09:00 03/09/17 08:31 Lasix PO 09/04/17 08:59 20 mg DAILY [facility] Losartan Potassium 25 mg 03/07/17 09:00 03/09/17 08:53 Cozaar PO 09/03/17 08:59 25 mg DAILY [facility] Prednisone 40 mg 03/08/17 10:15 03/09/17 08:31 Prednisone PO 03/10/17 09:01 40 mg DAILY [facility] Physical Exam - Physical Exam General Appearance: mild distress EENT: PERRL/EOMI, No scleral icterus (R) Neck: non-tender, full range of motion, supple Respiratory: decreased breath sounds, wheezing Cardiac/Chest: normal peripheral pulses, No edema, No gallop, No JVD Peripheral Pulses: 1+: carotid (R), carotid (L) Abdomen: normal bowel sounds, non-tender, soft Back: Normal inspection, No CVA tenderness Skin: normal color, warm/dry Lymphatic: no adenopathy Extremities: normal range of motion Neuro/Psych: no motor/sensory deficits ICD10 Worksheet Patient Problems: Problems Problem Status Onset COPD bronchitis Acute Elevated troponin Acute Coronary artery disease Acute Ischemic cardiomyopathy Acute Hypoxemia Acute Wheezing Acute Review of Systems - Review of Systems Constitutional: denies: chills, fever Respiratory: cough, shortness of breath, wheezing, hurts to breath Cardiac: denies: chest pain, irregular heart rate, lightheadedness, palpitations , syncope Gastrointestinal/Abdominal: no symptoms reported Genitourinary: no symptoms Musculoskelatal: no symptoms Skin: no symptoms
[2017-03-09] MEDS: BENZONATATE 100 MG CAP PO PRN (13:31)
--- NOTE | 2017-03-09 15:43 | ASMTCMCOM ---
CM Note CM Note Notes: Reviewed chart re: d/c poc, pt's progress. Pt w/ acute bronchitis, systolic CHF. Discharge on hold for cont pleuritic CP and productive sputum. Anticipate pt will still d/c home independently when medically stable. CM will cont to follow. Date Signed: 03/09/2017 03:42 PM Electronically Signed By:Radha Vang RN
[2017-03-09] MEDS: KETOROLAC 30 MG/1 ML SDV IVP PRN ×2 (17:41→23:26)
[2017-03-09] MEDS: TEMAZEPAM 15 MG CAP PO PRN (23:25)
[2017-03-10] MEDS: DIAZEPAM 5 MG TAB PO SCH ×2 (00:25→23:31)
[2017-03-10] MEDS: IPRATROPIUM/ALBUTEROL 4GM MDI IH SCH ×4 (05:00→20:05)
[2017-03-10] MEDS: CODEINE SULF 30 MG TAB PO PRN (09:02)
[2017-03-10] MEDS: ATORVASTATIN CALCIUM 40 MG TAB PO SCH (09:03)
[2017-03-10] MEDS: KETOROLAC 30 MG/1 ML SDV IVP PRN (09:07)
[2017-03-10] MEDS: CARVEDILOL 25 MG TAB PO SCH ×2 (09:13→18:17)
[2017-03-10] MEDS: predniSONE 20 MG TAB PO SCH (09:14)
[2017-03-10] MEDS: AZITHROMYCIN 250 MG TAB PO SCH (09:15)
[2017-03-10] MEDS: FUROSEMIDE 20 MG TAB PO SCH (09:15)
[2017-03-10] MEDS: FAMOTIDINE 20 MG TAB PO SCH ×3 (09:15→18:17)
[2017-03-10] MEDS: SPIRONOLACTONE 25 MG TAB PO SCH (09:15)
[2017-03-10] MEDS: ENOXAPARIN 40 MG/0.4 ML SYR SC SCH (09:16)
[2017-03-10] MEDS: OXYCODONE/APAP 5/325 TAB PO PRN (09:52)
[2017-03-10] MEDS: BENZONATATE 100 MG CAP PO PRN (12:56)
--- NOTE | 2017-03-10 13:07 | SOAPPROG ---
SOAP Progress Note Assessment/Plan: Assessment: 1. Acute bronchitis. 2. Chronic systolic heart failure with deterioration in ejection fraction to 30- 35%. 3. Coronary artery disease status post PCI of the right coronary. 4. Hypertension. 5. Hyperlipidemia. 03/10/17 13:04 Impression: Continue difficulty controlling pain. Out of proportion to findings. Improved hemodynamics. Continuing steroid taper. Recommendations: Solidify pain regime using Tylenol nonsteroidal anti-inflammatory drugs regularly. P.r.n. morphine. Resume Xanax 0.25 mg Q 8 for control of anxiety and to improve sleep. Having. Valium I think he is probably withdrawing some. D-dimer to exclude pulmonary embolic disease in light of persistent discomfort. He has been on DVT prophylaxis. 03/09/17 Impression: Slow and steady improvement. Continued persistent pleuritic chest pain associated with productive sputum. Pain relatively well controlled with Percocet. Continues slow and gentle diuresis. Plan: Discontinue telemetry. One more day of hospitalization with aggressive beta agonists. Considerations for outpatient implantation of a ICD if LV function not improving. Increase Cozar to 50 mg daily. Subjective: Feels poorly. Pain is severe. Coughing complicated by episode of vomiting this morning. Denies PND orthopnea. He has been dizzy with low blood pressure. Objective: Vital Signs Temp Pulse Resp BP Pulse Ox 36.8 C 80 16 108/57 L 91 L 03/10/17 11:16 03/10/17 12:46 03/10/17 12:46 03/10/17 11:16 03/10/17 12:46 Laboratory Results 03/06/17 15:25 03/09/17 08:40 03/09/17 03/10/17 03/11/17 05:59 05:59 05:59 Intake Total 2250 Output Total 400 375 Balance -400 1875 Physical Exam - Physical Exam General Appearance: no apparent distress EENT: PERRL/EOMI Neck: non-tender, full range of motion Respiratory: lungs clear, normal breath sounds Cardiac/Chest: normal peripheral pulses, regular rate, rhythm, No edema, No gallop, No JVD Abdomen: normal bowel sounds, non-tender, soft Back: Normal inspection Skin: warm/dry Extremities: normal range of motion Neuro/Psych: no motor/sensory deficits, alert ICD10 Worksheet Patient Problems: Problems Problem Status Onset COPD bronchitis Acute Elevated troponin Acute Coronary artery disease Acute Ischemic cardiomyopathy Acute Hypoxemia Acute Wheezing Acute Review of Systems - Review of Systems Constitutional: malaise. denies: chills, fever EENTM: sore throat Respiratory: no symptoms reported Cardiac: chest pain Gastrointestinal/Abdominal: vomiting Genitourinary: no symptoms Musculoskelatal: no symptoms Skin: no symptoms Neurological: no symptoms Hematologic/Lymphatic: no symptoms reported Immunologic/allergic: no symptoms reported
[2017-03-10] MEDS: IBUPROFEN 800 MG TAB PO SCH ×2 (14:39→22:09)
[2017-03-10] MEDS: ACETAMINOPHEN 500 MG TAB PO PRN (14:40)
[2017-03-10] MEDS: ALPRAZolam 0.25 MG TAB PO SCH ×2 (16:27→22:09)
[2017-03-10] MEDS: LOSARTAN POTASSIUM 50 MG TAB PO SCH (18:17)
[2017-03-10] MEDS: GUAIFENESIN/DM 10 ML UDCUP PO PRN (22:09)
[2017-03-10] MEDS: TEMAZEPAM 15 MG CAP PO PRN (23:21)
[2017-03-10] MEDS: traZODone 50 MG TAB PO SCH (23:21)
[2017-03-11] MEDS: IPRATROPIUM/ALBUTEROL 4GM MDI IH SCH ×4 (05:40→20:51)
[2017-03-11] MEDS: FUROSEMIDE 20 MG TAB PO SCH (09:07)
[2017-03-11] MEDS: predniSONE 20 MG TAB PO SCH (09:07)
[2017-03-11] MEDS: LOSARTAN POTASSIUM 50 MG TAB PO SCH (09:07)
[2017-03-11] MEDS: AZITHROMYCIN 250 MG TAB PO SCH (09:07)
[2017-03-11] MEDS: SPIRONOLACTONE 25 MG TAB PO SCH (09:07)
[2017-03-11] MEDS: ALPRAZolam 0.25 MG TAB PO SCH ×3 (09:07→23:09)
[2017-03-11] MEDS: CARVEDILOL 25 MG TAB PO SCH ×2 (09:07→17:55)
[2017-03-11] MEDS: FAMOTIDINE 20 MG TAB PO SCH ×2 (09:08→23:09)
[2017-03-11] MEDS: ATORVASTATIN CALCIUM 40 MG TAB PO SCH (09:11)
[2017-03-11] MEDS: ENOXAPARIN 40 MG/0.4 ML SYR SC SCH (09:13)
[2017-03-11] MEDS: IBUPROFEN 800 MG TAB PO SCH ×3 (09:53→23:08)
[2017-03-11] MEDS: CODEINE SULF 30 MG TAB PO PRN ×2 (12:10→21:25)
[2017-03-11] MEDS: BENZONATATE 100 MG CAP PO PRN (12:12)
[2017-03-11] MEDS ORDERED: IOPAMIDOL (ISOVUE 370) 100 ML BTL IV ONE (15:20)
--- NOTE | 2017-03-11 16:26 | ASMTCMCOM ---
CM Note CM Note Notes: 03/11/2017 Case Management Note Met w/pt. Pt rents a room in a condo from [employer] in [place]. Pt reports only income is from disability payments. Discussed d/c needs. Explained to pt that SNF rehab will require 30 day stay d/t Medicaid insurance. Pt clearly stated that SNF rehab is not an option at this time and exceeds the level of care he feels he needs. Pt reports [facility] and that he feels he is able to get to the grocery and make meals independently. Primary MD is Dr. Ludy Jose per patient. Case Management d/c poc: Home independent when medically stable. Case Management available if needs change. Date Signed: 03/11/2017 04:25 PM Electronically Signed By:Chanda Rahman RN
--- NOTE | 2017-03-11 17:34 | SOAPPROG ---
SOAP Progress Note Assessment/Plan: Assessment: 1. Acute bronchitis. 2. Chronic systolic heart failure with deterioration in ejection fraction to 30- 35%. 3. Coronary artery disease status post PCI of the right coronary. 4. Hypertension. 5. Hyperlipidemia. Prcodeure: CT chest 03/11/17 03/11/17 17:31 Impression: Continue difficulty controlling pain. Continued cough productive of sputum. Continues to feel poorly. Patient is ruled out for pulmonary embolic disease. No focal infiltrate was seen on CT. Bronchitis is still the diagnosis clinically and by imaging. Pain clearly out of proportion to symptoms. Hemodynamics, cardiovascular status is stable. Recommendations: Continue current medical therapy. If patient is unable to care for himself transfer to nursing facility. 03/10/17 13:04 Impression: Continue difficulty controlling pain. Out of proportion to findings. Improved hemodynamics. Continuing steroid taper. Recommendations: Solidify pain regime using Tylenol nonsteroidal anti-inflammatory drugs regularly. P.r.n. morphine. Resume Xanax 0.25 mg Q 8 for control of anxiety and to improve sleep. Having. Valium I think he is probably withdrawing some. D-dimer to exclude pulmonary embolic disease in light of persistent discomfort. He has been on DVT prophylaxis. 03/09/17 Impression: Slow and steady improvement. Continued persistent pleuritic chest pain associated with productive sputum. Pain relatively well controlled with Percocet. Continues slow and gentle diuresis. Plan: Discontinue telemetry. One more day of hospitalization with aggressive beta agonists. Considerations for outpatient implantation of a ICD if LV function not improving. Increase Cozar to 50 mg daily. Subjective: Feels poorly. Continue chest pain especially with deep breathing and cough. Inability to eat. Recurrent vomiting. Dry heaves. Night sweats. Objective: Vital Signs Temp Pulse Resp BP Pulse Ox 36.6 C 75 18 127/72 H 68 L 03/11/17 16:27 03/11/17 16:27 03/11/17 16:27 03/11/17 16:27 03/11/17 16:27 Laboratory Results 03/06/17 15:25 03/09/17 08:40 03/10/17 03/11/17 03/12/17 05:59 05:59 05:59 Intake Total 2250 420 500 Output Total 375 625 Balance 1875 -205 500 Physical Exam - Physical Exam General Appearance: no apparent distress EENT: PERRL/EOMI, normal ENT inspection Neck: non-tender, full range of motion Respiratory: chest non-tender, No respiratory distress Cardiac/Chest: normal peripheral pulses, regular rate, rhythm, No JVD Peripheral Pulses: 1+: carotid (R), carotid (L), femoral (R), femoral (L), dorsalis-pedis (R), dorsalis-pedis (L) Abdomen: normal bowel sounds, non-tender, soft Skin: warm/dry Lymphatic: no adenopathy Neuro/Psych: no motor/sensory deficits ICD10 Worksheet Patient Problems: Problems Problem Status Onset COPD bronchitis Acute Elevated troponin Acute Coronary artery disease Acute Ischemic cardiomyopathy Acute Hypoxemia Acute Wheezing Acute Review of Systems - Review of Systems Constitutional: chills, malaise, weakness. denies: fever EENTM: sore throat Respiratory: cough, hurts to breath Cardiac: no symptoms reported Gastrointestinal/Abdominal: nausea, vomiting. denies: diarrhea Genitourinary: no symptoms Musculoskelatal: no symptoms Neurological: no symptoms Hematologic/Lymphatic: no symptoms reported
[2017-03-11] MEDS: ACETAMINOPHEN 500 MG TAB PO PRN (18:00)
[2017-03-11 20:58] VITALS: RESP 16
[2017-03-11] MEDS: traZODone 50 MG TAB PO SCH (23:08)
[2017-03-11] MEDS: DIAZEPAM 5 MG TAB PO SCH (23:09)
[2017-03-12] MEDS: TEMAZEPAM 15 MG CAP PO PRN (00:27)
[2017-03-12] MEDS: GUAIFENESIN/DM 10 ML UDCUP PO PRN (03:52)
[2017-03-12] MEDS: IBUPROFEN 800 MG TAB PO SCH (05:44)
[2017-03-12] MEDS: IPRATROPIUM/ALBUTEROL 4GM MDI IH SCH (06:18)
[2017-03-12 08:16] VITALS: BP 134/88; PULSE 66; TEMP 97.6; O2SAT 93
[2017-03-12] MEDS: BENZONATATE 100 MG CAP PO PRN (08:19)
[2017-03-12] MEDS: ENOXAPARIN 40 MG/0.4 ML SYR SC SCH (08:19)
[2017-03-12] MEDS: CODEINE SULF 30 MG TAB PO PRN (08:21)
[2017-03-12] MEDS: ATORVASTATIN CALCIUM 40 MG TAB PO SCH (08:21)
[2017-03-12] MEDS: predniSONE 20 MG TAB PO SCH (08:22)
[2017-03-12] MEDS: ALPRAZolam 0.25 MG TAB PO SCH (08:22)
[2017-03-12] MEDS: LOSARTAN POTASSIUM 50 MG TAB PO SCH (08:22)
[2017-03-12] MEDS: FUROSEMIDE 20 MG TAB PO SCH (08:22)
[2017-03-12] MEDS: AZITHROMYCIN 250 MG TAB PO SCH (08:23)
[2017-03-12] MEDS: CARVEDILOL 25 MG TAB PO SCH (08:23)
[2017-03-12] MEDS: FAMOTIDINE 20 MG TAB PO SCH (08:23)
[2017-03-12] MEDS ORDERED: OXYCODONE/APAP 5/325 TAB PO PRN (09:25)
--- NOTE | 2017-03-12 09:38 | PDDCSUM ---
Discharge Summary Discharge Summary: Admission date: 03/06/2017. Discharge date: 03/12/2017. Admission diagnosis: Chills, bronchitis, acute on chronic heart failure. Discharge diagnosis: Acute bronchitis. Acute on chronic systolic heart failure. Coronary artery disease. Hypertension. Anxiety. Hyperlipidemia. Procedures: CT scan of the chest 03/11/2017. No pulmonary embolic disease, no aortic dissection, coronary artery disease. Echocardiogram 03/07/2017: LV systolic function 35%. Medications per discharge medication reconciliation sheet. Follow-up true he 0 10 days. Follow-up pass 7 days. Referred [facility] for guidance. Hospital course: Patient is a 52-year-old male well known to me admitted to the hospital with acute shortness of breath malaise, fever associated with weight loss. Initial diagnosis consistent with acute bronchitis. He was treated conservatively with a Z-Kwame, oral steroids. His biggest complaint was of persistent pleuritic chest pain/coughing leading to dry heaves and vomiting. Aggressive control was attempted with Tessalon Perles, narcotics with some improvement. Anxiety was managed with Xanax q.8 hours. At the time of discharge she was tolerating current pain as well as can be expected. Patient' s vital signs remained stable with a blood pressure 123/76 heart rate was 62 oxygen saturation was greater than 90%. His chest continued to show occasional scattered rhonchi and wheezing resolved with inhaled therapy. Patient's heart failure was modestly worse with a reduction in ejection fraction. He was given IV diuretic therapy and transition to oral diuretic without complication. At the time of discharge she was euvolemic without JVP. He was sleeping flat without PND orthopnea. Patient be followed up as an outpatient. Repeat assessment of LV function once afterload reduction maximized. Patient should be considered for AICD. From a social point of view patient will need to find a stable living situation. I have given him prescriptions for his medications. He will be followed up as outlined above. He is discharged home in stable condition with all questions answered.
--- NOTE | 2017-03-12 09:42 | ASMTCMCOM ---
CM Note CM Note Notes: 03/12/2017 case management note Met w/pt to discuss discharge plans. Provided information for [facility] after pt expressed concerns about ability to continue to rent room in [facility]. Pt denied any further needs from case management. Date Signed: 03/12/2017 09:42 AM Electronically Signed By:Chanda Rahman RN
--- NOTE | 2017-03-12 11:44 | ASDISCHSUM ---
Discharge Information Plan Status:Home with No Needs Medically Cleared to Leave:03/12/2017 Discharge Date:03/12/2017 10:35 AM CM D/C Disposition:Home, Routine, Self-Care ADT D/C Disposition:Home, Routine, Self-Care Projected Discharge Date:03/12/2017 10:35 AM Transportation at D/C:Self Discharge Delay Reason: Follow-Up Date:03/12/2017 10:35 AM Discharge Slot: Final Diagnosis: Placement Information Patient Contact Information Contact Name:CHELLE Relationship:Other Address: Work Phone: City: [facility] Phone: State/Zip Code: Email: Financial Information Financial Class: Primary Plan Desc:MEDICAID HEALTH [employer] [place] Primary Plan Number:[id number] Secondary Plan Desc: Secondary Plan Number: Assessment Information [facility] CM Progress Note CM Note CM Note Notes: Chart reviewed. Discussed with patient's RN. Patient to dc tomorrow. No needs identified. CM available if needs arise. Date Signed: 03/07/2017 01:41 PM Electronically Signed By:Kassy Carpenter RN [facility] CM Progress Note CM Note CM Note Notes: Reviewed chart re: d/c poc, pt's progress. Pt w/ acute bronchitis, systolic CHF. Discharge on hold for cont pleuritic CP and productive sputum. Anticipate pt will still d/c home independently when medically stable. CM will cont to follow. Date Signed: 03/09/2017 03:42 PM Electronically Signed By:Radha Vang RN [facility] Progress Note CM Note CM Note Notes: 03/11/2017 Case Management Note Met w/pt. Pt rents a room in a condo from [employer] [facility] in [place]. Pt reports only income is from disability payments. Discussed d/c needs. Explained to pt that SNF rehab will require 30 day stay d/t Medicaid insurance. Pt clearly stated that SNF rehab is not an option at this time and exceeds the level of care he feels he needs. Pt reports he plans to return to condo at d/c and that he feels he is able to get to the grocery and make meals independently. Primary MD is Dr. Ludy Jose per patient. Case Management d/c poc: Home independent when medically stable. Case Management available if needs change. Date Signed: 03/11/2017 04:25 PM Electronically Signed By:Chanda Rahman RN [facility] CM Progress Note CM Note CM Note Notes: 03/12/2017 case management note Met w/pt to discuss discharge plans. Provided information for [facility] after pt expressed concerns about ability to continue to rent room in condo. Pt denied any further needs from case management. Date Signed: 03/12/2017 09:42 AM Electronically Signed By:Chanda Rahman RN Intervention Information Intervention Type:*Incorrect Registration Date of Service:03/07/2017 04:01 PM Patient Type:Inpatient Staff Member:CATE Cochran Susan Hours: Discipline: Severity: Comment:
[2017-03-14] MEDS ORDERED: predniSONE 10 MG TAB PO SCH (09:00)
== END 2017-03-12 10:35 | disposition home or self-care (01) | DRG 202 ==
LOC: F2W 14:25 → INTOOBSV 14:25 → OBSVTOIN 03-07 14:58
PROVIDERS: ADMIT Internal Medicine Interventional Cardiology; ATTEND Internal Medicine Interventional Cardiology
DX: J20.9 Acute bronchitis, unspecified (principal); I50.23 Acute on chronic systolic (congestive) heart failure; I11.0 Hypertensive heart disease with heart failure; I25.10 Atherosclerotic heart disease of native coronary artery without angina pectoris; E78.5 Hyperlipidemia, unspecified; F41.9 Anxiety disorder, unspecified; I25.5 Ischemic cardiomyopathy; Z87.891 Personal history of nicotine dependence; I25.2 Old myocardial infarction; K21.9 Gastro-esophageal reflux disease without esophagitis
CPT/HCPCS: G0378; G0379; J1650; J1885; J1940; J2405; Q9967

== ENCOUNTER 2017-04-17 12:24 | Inpatient (IN) | payer MEDICAID ==
--- NOTE | 2017-04-17 12:54 | CPEKG ---
Heart Rate: 77 RR Interval: 779 P-R Interval: 160 QRSD Interval: 96 QT Interval: 440 QTC Interval: 499 P Perry: 25 QRS Perry: 28 T Wave Perry: 97 EKG Severity - BORDERLINE ECG - EKG Impression: SINUS RHYTHM EKG Impression: BORDERLINE PROLONGED QT INTERVAL Electronically Signed By: Antwan Mesa 17-Apr-2017 15:18:50
[2017-04-17] MEDS ORDERED: NS 500 ML IV ONE (12:58)
[2017-04-17] MEDS ORDERED: ASPIRIN 81 MG CHEWABLE TAB PO ONE (12:58)
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
[2017-04-17 13:37] LABS: % IMMATURE GRANULYOCYTES 0.3 % (0.0-1.1); ABSOLUTE IMMATURE GRANULOCYTES 0.02 10^3/uL (0.00-0.10); ADD DIFF? NO; ADD MORPH? NO; ADD SCAN? NO; ATYPICAL LYMPHOCYTE FLAG 0 (0-99); FRAGMENT RBC FLAG 0 (0-99); HEMATOCRIT 48.4 % (40.0-51.0); HEMOGLOBIN 16.8 g/dL (13.7-17.5); LEFT SHIFT FLG 0 (0-99); LIPEMIA HEMOLYSIS FLAG 90 (0-99); MEAN CELL HEMOGLOBIN 32.3 pg (27.9-34.1); MEAN CELL HEMOGLOBIN CONCENTR. 34.7 g/dL (32.4-36.7); MEAN CELL VOLUME 93.1 fL (81.5-99.8); MEAN PLATELET VOLUME 10.1 fL (8.7-11.7); PLATELET CLUMPS FLAG 0 (0-99); PLATELET COUNT 147 10^3/uL (150-400); RED CELL DISTRIBUTION WIDTH 13.2 % (11.5-15.2)
[2017-04-17 13:46] LABS: ANION GAP 10 mEq/L (8-16); CALCIUM 9.4 mg/dL (8.5-10.4); CARBON DIOXIDE 26 mEq/l (22-31); CHLORIDE 107 mEq/L (97-110); CREATININE 0.9 mg/dL (0.7-1.3); GLOMERULAR FILTRATION RATE > 60; GLUCOSE 88 mg/dL (70-100); POTASSIUM 3.8 mEq/L (3.5-5.2); SODIUM 143 mEq/L (134-144)
[2017-04-17 13:58] LABS: TROPONIN I < 0.012 ng/mL (0.000-0.034)
[2017-04-17] MEDS ORDERED: HYDROCODONE/APAP 5/325 TAB PO ONE (14:57)
[2017-04-17 15:52] LABS: APTT 24.6 SEC (23.0-38.0); INR 0.97 (0.83-1.16); PROTIME(PATIENT) 12.8 SEC (12.0-15.0)
[2017-04-17] MEDS ORDERED: ONDANSETRON 4 MG/2 ML VIAL IVP PRN (16:16)
[2017-04-17] MEDS ORDERED: PROTOCOL POTASSIUM 1 DOSE MISC PRN (16:30)
[2017-04-17] MEDS ORDERED: NS 1,000 ML IV SCH (16:30)
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
[2017-04-17] MEDS: oxyCODONE IR 5 MG TAB PO PRN (17:02)
--- NOTE | 2017-04-17 18:04 | CPEKG ---
Heart Rate: 62 RR Interval: 968 P-R Interval: 168 QRSD Interval: 100 QT Interval: 480 QTC Interval: 488 P [place]: 41 QRS [place]: 25 T Wave [place]: 4 EKG Severity - BORDERLINE ECG - EKG Impression: SINUS RHYTHM EKG Impression: BORDERLINE PROLONGED QT INTERVAL Electronically Signed By: Luis Fernando Guy 18-Apr-2017 18:32:40
[2017-04-17] MEDS: FAMOTIDINE 20 MG TAB PO SCH (18:39)
[2017-04-17 19:25] LABS: POTASSIUM 3.7 mEq/L (3.5-5.2)
[2017-04-17 19:37] LABS: TROPONIN I 0.016 ng/mL (0.000-0.034)
[2017-04-17] MEDS ORDERED: POTASSIUM CL 10 MEQ TAB PO ONE (19:38)
[2017-04-17] MEDS: ACETAMINOPHEN 325 MG TAB PO PRN (21:07)
[2017-04-17] MEDS: CARVEDILOL 25 MG TAB PO SCH (21:08)
[2017-04-17] MEDS: ALPRAZolam 0.25 MG TAB PO SCH (22:50)
[2017-04-17] MEDS: traZODone 100 MG TAB PO SCH (22:50)
[2017-04-17] MEDS: TEMAZEPAM 15 MG CAP PO SCH (22:50)
[2017-04-18 05:31] LABS: % IMMATURE GRANULYOCYTES 0.2 % (0.0-1.1); ABSOLUTE IMMATURE GRANULOCYTES 0.01 10^3/uL (0.00-0.10); ADD DIFF? NO; ADD MORPH? NO; ADD SCAN? NO; ATYPICAL LYMPHOCYTE FLAG 0 (0-99); FRAGMENT RBC FLAG 0 (0-99); HEMATOCRIT 42.9 % (40.0-51.0); HEMOGLOBIN 14.1 g/dL (13.7-17.5); LEFT SHIFT FLG 0 (0-99); LIPEMIA HEMOLYSIS FLAG 80 (0-99); MEAN CELL HEMOGLOBIN 31.4 pg (27.9-34.1); MEAN CELL HEMOGLOBIN CONCENTR. 32.9 g/dL (32.4-36.7); MEAN CELL VOLUME 95.5 fL (81.5-99.8); PLATELET CLUMPS FLAG 10 (0-99); PLATELET COUNT 114 10^3/uL (150-400); RED BLOOD CELL COUNT 4.49 10^6/uL (4.40-6.38); RED CELL DISTRIBUTION WIDTH 13.3 % (11.5-15.2)
[2017-04-18 05:49] LABS: ALANINE AMINOTRANSFERASE 29 IU/L (21-72); ALBUMIN 2.9 g/dL (3.5-5.0); ALKALINE PHOSPHATASE 44 IU/L (38-126); ANION GAP 7 mEq/L (8-16); ASPARTATE AMINOTRANSFERASE 18 IU/L (17-59); BILIRUBIN,TOTAL 0.4 mg/dL (0.1-1.4); BILIRUBIN-UNCONJUGATED 0.4 mg/dL (0.0-1.1); C-REACTIVE PROTEIN 5.7 mg/L (<10.0); CALCIUM 8.6 mg/dL (8.5-10.4); CARBON DIOXIDE 29 mEq/l (22-31); CHLORIDE 106 mEq/L (97-110); CHOLESTEROL 126 mg/dL (140-220); CHOLESTEROL/HDL RATIO 2.74 RATIO (1.00-4.97); CREATININE 0.9 mg/dL (0.7-1.3); GLOMERULAR FILTRATION RATE > 60; GLUCOSE 86 mg/dL (70-100); HIGH DENSITY LIPOPROTEIN 46 mg/dL (40-65); LDL/HDL RATIO 1.35 RATIO (1.00-3.64); LOW DENSITY LIPOPROTEIN 62 mg/dL (80-100); MAGNESIUM 1.8 mg/dL (1.6-2.3); NON-HIGH DENSITY LIPOPROTEIN 80 mg/dL (90-129); SODIUM 142 mEq/L (134-144); TOTAL PROTEIN 5.4 g/dL (6.3-8.2); TRIGLYCERIDE 92 mg/dL (40-150); VERY LOW DENSITY LIPOPROTEINS 18 mg/dL (8-25)
[2017-04-18 05:56] LABS: TROPONIN I 0.018 ng/mL (0.000-0.034)
[2017-04-18] MEDS ORDERED: COSYNTROPIN 0.25 MG/2 ML SYRINGE IVP ONE (06:00)
[2017-04-18 06:13] LABS: SEDIMENTATION RATE 5 MM/HR (0-20)
[2017-04-18 06:15] LABS: CORTISOL-AM 0.3 ug/dL (4.5-22.7)
[2017-04-18] MEDS: oxyCODONE IR 5 MG TAB PO PRN ×3 (06:16→17:50)
[2017-04-18] MEDS: ALPRAZolam 0.25 MG TAB PO SCH (07:41)
[2017-04-18] MEDS: CYCLOBENZAPRINE 10 MG TAB PO PRN (07:44)
[2017-04-18] MEDS ORDERED: ENOXAPARIN 40 MG/0.4 ML SYR SC SCH (09:00)
[2017-04-18] MEDS ORDERED: REGADENOSON 0.4 MG/5 ML SYR IVP ONE (09:34)
--- NOTE | 2017-04-18 09:38 | CPEKG ---
Heart Rate: 56 RR Interval: 1071 P-R Interval: 140 QRSD Interval: 102 QT Interval: 504 QTC Interval: 487 P [place]: 26 QRS [place]: 49 T Wave [place]: 39 EKG Severity - BORDERLINE ECG - EKG Impression: SINUS RHYTHM EKG Impression: BORDERLINE PROLONGED QT INTERVAL Electronically Signed By: Luis Fernando Guy 18-Apr-2017 18:32:20
[2017-04-18] MEDS: ATORVASTATIN CALCIUM 40 MG TAB PO SCH (10:20)
[2017-04-18] MEDS: CARVEDILOL 25 MG TAB PO SCH (10:20)
[2017-04-18] MEDS: LISINOPRIL 10 MG TAB PO SCH (10:20)
[2017-04-18] MEDS: TERBINAFINE HCL 250 MG TAB PO SCH (10:20)
[2017-04-18] MEDS: ASPIRIN EC 81 MG TAB PO SCH (10:21)
[2017-04-18] MEDS: FAMOTIDINE 20 MG TAB PO SCH ×2 (10:21→16:52)
[2017-04-18] MEDS: ACETAMINOPHEN 325 MG TAB PO PRN ×2 (10:47→20:04)
[2017-04-18] MEDS: SPIRONOLACTONE 25 MG TAB PO SCH (10:48)
--- NOTE | 2017-04-18 12:14 | ASMTCMCOM ---
CM Note CM Note Notes: Patient admitted for investigation of recurrent syncope and chest pain in light of a significant cardiac history. Stress test, labs, and PT/OT evals pending. He lives with a roommate and is normally independent. He is very disturbed by his recent dizziness. PT evaluated him and anticipated an independent discharge with no needs, but we will continue to follow. Current CM discharge plan: TBD Date Signed: 04/18/2017 12:13 PM Electronically Signed By:Marisela Palacios RN
[2017-04-18] MEDS ORDERED: CARVEDILOL 25 MG TAB PO SCH (12:56)
[2017-04-18] MEDS: HYDROCORTISONE 10 MG TAB PO SCH ×2 (13:31→20:05)
--- NOTE | 2017-04-18 14:31 | ECHO ---
[email or web address] [address] [address] Main: [phone] Fax: Transthoracic Echocardiogram Name: LENNOX CARO MR#: [id number] Study Date: 04/18/2017 Study Time: 07:48 AM Date of : 1965 Age: 52 year(s) Height: 170.2 cm (67 in.) Weight: 106.14 kg (234 lb.) BSA: 2.16 m2 Gender: Male Examination: Echo Indication: Cardiac: syncope, Echo 6 weeks ago EF 30-35% Image Quality: Contrast: Requested by: Batool Wheeler BP: 142 mmHg/99 mmHg Heart Rate: Rhythm: Normal sinus rhythm Indication: Cardiac: syncope, Echo 6 weeks ago EF 30-35% Procedure Staff Log Data Technician: Blane Bellamy Reading Physician: Nomi Porter Requesting Provider: Conclusions: Moderately reduced systolic LV function. The ejection fraction is estimated to be 25-30 %. The mitral valve is normal in appearance and function. The aortic valve is normal in appearance and function. No pericardial effusion. Measurements: Chambers Valvular Assessment AV/MV Valvular Assessment TV/PV Normal Normal Normal Name Value Range Name Value Range Name Value Range Ao Radha (MM): 4.2 cm (2.2 cm-3.7 AV Vmax: 1.07 m/s (1 m/s-1.7 PV Vmax: 0.69 m/s (0.6 m/s-0.9 cm) m/s) m/s) IVSd (2D): 1.1 cm (0.6 cm-1.1 AV maxP mmHg ( - ) PV PGmax: 2 mmHg ( - ) cm) LVOT Vmax: 0.43 m/s (0.7 m/s-1.1 LVDd (2D): 6.4 cm (4.2 cm-5.9 m/s) cm) MV E Vmax: 0.43 m/s ( - ) LVDs (2D): 5.4 cm (2.1 cm-4 MV A Vmax: 0.80 m/s ( - ) cm) MV E/A: 0.54 ( - ) LVPWd (2D): 1.2 cm (0.6 cm-1 cm) LVEF (BP): 33 % (>=55 %) EF Range: 25-30 % Continued Measurements: Chambers Valvular Assessment AV/MV Name Value Name Value LADs Lon.6 cm MV E/E' Septal: 10.60 LA Area: 20.8 cm2 MV E/E' Lateral: 9.10 Patient: LENNOX CARO Study Date: 04/18/2017 Page 1 of 2 07:48 AM Findings: Left Ventricle: Mildly dilated left ventricle. Mild concentric LV hypertrophy. Moderately reduced systolic LV function. There is global hypokinesis. The ejection fraction is estimated to be 25-30 %. Right Ventricle: Normal size right ventricle. Normal RV function. Left Atrium: The left atrium is normal in size. Right Atrium: The right atrium is normal in size. Mitral Valve: The mitral valve is normal in appearance and function. There is no mitral valve regurgitation. Aortic Valve: The aortic valve is tri-leaflet. The aortic valve is normal in appearance and function. Tricuspid Valve: The tricuspid valve is normal in appearance and function. Pulmonic Valve: The pulmonic valve is normal in appearance and function. Aorta: The aorta is normal. Pericardium: No pericardial effusion. (No Signature Object) Patient: LENNOX CARO Study Date: 04/18/2017 Page 2 of 2 07:48 AM [id number]
--- NOTE | 2017-04-18 14:40 | PDCARST ---
CAR Stress Test Results Type of Stress Test: Lexiscan stress test Indication: dizziness/h/o CAD Description of Procedure: After informed consent was obtained, pt was established to ECG, blood pressure, HR and oximetry monitoring. STRESS EKG AND HEMODYNAMIC DATA. Resting heart rate: 51 BPM. Resting ECG: SR. Resting blood pressure: 158/90 mmHg. O2 saturation at rest: 90%. Peak heart rate: 97 BPM. Peak blood pressure: 110/70 mmHg. Arrhythmias: none. Symptoms: The patient experienced no typical symptoms of angina during stress or recovery. Stress/Infusion ECG: No change in rhythm with no significant ST/T wave changes. Stress/infusion O2 saturation: 95% Impression: Uneventful Lexiscan infusion. Conclusion: Await nuclear images.
[2017-04-18] MEDS: CARVEDILOL 6.25 MG TAB PO SCH (17:55)
--- NOTE | 2017-04-18 21:03 | GCON ---
[f rep st] CONSULTATION CARDIOLOGY CONSULT CHIEF COMPLAINT: Lightheadedness. HISTORY OF PRESENT ILLNESS: This is a 52-year-old male with history of ischemic cardiomyopathy, know n EF of approximately 30%-35% who follows with Dr. Mckeon in our office. The patient was admitted for episodes of dizzy spells over the last 3 days. He indicates that the dizziness comes on when he sits up or stands up or when he moves his head in a rapid fashion. Denies any palpitations or chest pain or shortness of breath. He was just discharged from [facility] approximately 1 mo nth ago for bronchitis. Currently he denies any chest pain at rest of the blood pressure. Heart rat e is stable. There has been no arrhythmias noted on the tele monitor over the last 24 hours. His EC G shows sinus rhythm with incomplete left bundle branch block. Echocardiogram verified EF of 25%-30% with global LV systolic function. A stress test done earlier this morning showed EF of 37% with mil d ischemia in the inferior wall. The patient does have a known history of RCA occlusion with left-to -right collaterals and kidzn-bu-gqymr collaterals. PAST MEDICAL HISTORY: Significant for chronic systolic heart failure. EF less than 35%. History of coronary artery disease with known distal RCA occlusion with zykww-am-suurg collaterals and left-to- right collaterals. COPD. Hypertension. FAMILY HISTORY: Noncontributory. SOCIAL HISTORY: Was a former smoker. Quit in 2014. Alcohol use on the weekend. HOME MEDICATIONS: Consists of carvedilol, lisinopril, spironolactone. Please see additional medicat ion list on the patient's MAR. REVIEW OF SYSTEMS: Patient denies any vision changes. No headache. No palpitations. No chest pain . No abdominal pain. No lower extremity pain. The patient does indicate having dizzy spells when s tanding up rapidly from a seated position. EXAM: VITAL SIGNS: Patient is afebrile at 96, blood pressure 152/70, heart rate 73, respirations 12 , satting 95% on room air. HEENT: Pupils equal round and reactive to light and accommodation. Extra ocular muscles intact. CARDIOVASCULAR: Regular rate and rhythm. S1, S2. Soft 2/6 systolic murmur heard best at the apex. ABDOMEN: Soft, nontender. No guarding. LUNGS: Clear to auscultate bilate rally. EXTREMITIES: No clubbing, no cyanosis. No edema. NEUROLOGIC: Alert and oriented x3. LABORATORY VALUES: Currently show a white count of 5.0, hemoglobin 14.1, hematocrit 42.9, platelet c ount of 114. Creatinine of 0.9, BUN of 14, potassium 4.0, sodium D-dimer 0.7. Stress te st done earlier today shows global LV systolic function. EF 37% with mild inferior wall ischemia. ASSESSMENT/PLAN: 1. Dizzy spells. At this time, the patient has only had normal sinus rhythm on the telemetry monito ring. His stress test is consistent with his known history of right coronary artery chronic total oc clusion and is not a new finding. He has discussed with Dr. Mckeon in the past of ICD placement; h owever given his lack of arrhythmias, the ICD did not seem to be curative issue at this point, it can be discussed further as an outpatient. The patient had responded favorably to IV fluids during his last 24 hours, secondary to orthostatics being positive. Would be conservative with IV fluid hydrati on; however the patient might be overmedicated, hence resulting in his current clinical issues. We w ill continue to follow on telemetry for the next 24 hours and hopefully we can evaluate further ortho statics as needed. /[id number]/MODL
--- NOTE | 2017-04-18 21:51 | HOSPPROG ---
Hospitalist Progress Note Assessment/Plan: Assessment: 52 yo M p/w 6 weeks of dizziness in setting of orthostasis, chronic systolic CHF, possible primary adrenal insufficiency Plan: # Dizziness. Acute, new problem to this provider, further w/u indicated. Patient reports onset approx 6 weeks ago PRIOR to episode of "bronchitis", PRIOR to adjustment of HS valium to daytime scheduled xanax, w/o any temporal adjustments in his carvedilol dosing (has been on even higher doses since 03/17) . Physical exam is remarkable for positional/orthostatic reproducibility, but argues against vertigo as his head position does not affect the symptoms (has more to do with trunk position, from supine to seated, seated to standing). - potential etiologies include benzo side-effects vs. symptomatic orthostasis ( VS positive for this on presentation, albeit SBP went from 140->120 which should not produce such profound dizziness) w/ possible adrenal insufficiency contributing to low blood pressure and adrenergic response further blunted by bblocker therapy vs. less-likely symptomatic MS/white-matter disease (as seen on MRI) - get CUS to r/o vertebral-basilar insufficiency - dimer mildly positive, but review of 03/19 hospitalization for similar issue reveals elevated dimer at that time, negative CTA for PE, will not repeat - reduce bblocker dosage to 12.5mg bid and hold if SBP < 100 - stop daytime scheduled xanax - tx possible adrenal insufficiency - repeat orthostatics in AM # Possible primary adrenal insufficiency. Evidenced by AM lamont 0.3 w/ a responsive stim test (15), albeit response is on low-normal side, unclear why he would have insufficiency, and values point towards Hypothal-Pit axis instead of adrenal glands - given the degree of his symptomatology, patient is electing for empiric trial of hydrocortisone 20/10, start now, and gauge response over next 24hrs - hold further IVF - patient unsafe to complete ADLs w/ high fall risk # Chronic systolic CHF. No e/o acute exacerbation - reviewed outside records w/ Anai Mahan, patient's most recent clinic appt note by Dr. Mckeon notes EF 45% - cont on aldactone, added ACEi, reduced bblocker - if hypotensive, favor reducing bblocker further, as well as ACEi # CAD. Chronic, patient not taking ASA prior to presentation - start ASA, cont statin - appreciate Cards consult, nuc stress w/ area of infarct corresponding to RCA occlusion, mild saskia-infarct ischemia, similar to prior, no cath recommended - that said, Echo w/ EF 25-30%, reduced from prior, recommend d/w Cards 04/19 to determine whether this reduction in setting of known ischemic cardiomyopathy warrants cath, will make NPO in AM # Hx TBI. Numerous concussions in past w/ wresting, MRI certainly could be indicative of CTE - patient's cognition and processing seem like they may be somewhat impaired and would recommend outpt eval w/ MMSE as well as consideration of CTE Diet. Cardiac, NPO in AM PPx. High risk, lovenox 40 Code. Full Dispo. ADD uncertain, upgrade to inpatient admission status re: anticipated LOS > 48hrs for reasonable medical necessity including ongoing w/u of possible adrenal insufficiency w/ hypotension, symptoms rendering patient unable to complete ADLs, unsafe to discharge, requiring w/u w/ possible cath, med adjustments. Subjective: reports symptoms w/ sitting and standing, cannot ambulate safely Objective: Vital Signs Temp Pulse Resp BP Pulse Ox 36.3 C 54 L 17 137/87 H 90 L 04/18/17 20:00 04/18/17 20:00 04/18/17 20:00 04/18/17 20:00 04/18/17 20:00 04/17/17 04/18/17 04/19/17 05:59 05:59 05:59 Intake Total 400 Output Total 900 Balance -500 PT 12.8 SEC (12.0-15.0) 04/17/17 13:29 INR 0.97 (0.83-1.16) 04/17/17 13:29 - Physical Exam Constitutional: no apparent distress, appears nourished, not in pain, No uncomfortable Cardiovascular: systolic murmur (I/ at sternum), No irregularly irregular, No tachycardia, No edema Respiratory: no respiratory distress, no rales or rhonchi, clear to auscultation Gastrointestinal: normoactive bowel sounds, soft, non-tender abdomen, no palpable masses Neurologic: AAOx3, sensation intact bilaterally, other (no dizziness w/ rotational movement of head, profound dizziness w/ sitting upright), No weakness , No facial droop Psychiatric: not encephalopathic, anxious, poor memory, other (tangential affect and scattered thought process, redirectible, cooperative and following commands), No agitated ICD10 Worksheet Patient Problems: Problems Problem Status Onset Syncope Acute Vertigo Acute COPD bronchitis Acute Coronary artery disease Acute Elevated troponin Acute Hypoxemia Acute Ischemic cardiomyopathy Acute Wheezing Acute
[2017-04-18] MEDS: TEMAZEPAM 15 MG CAP PO SCH (23:01)
[2017-04-18] MEDS: traZODone 100 MG TAB PO SCH (23:01)
[2017-04-18] MEDS: DIAZEPAM 5 MG TAB PO SCH (23:02)
[2017-04-19] MEDS: oxyCODONE IR 5 MG TAB PO PRN ×3 (03:47→17:27)
--- NOTE | 2017-04-19 07:30 | PDCARPN ---
Cardiology Progress Note Chief Complaint: dizziness Assessment/Plan: Assessment: dizziness ischemic CM HTN Plan: 04/19/17 07:26 Pt still c/o dizziness, especially when sitting up/turning his head ? 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 Mckeon unless valid arrhythmias appear on tele while inpatient Subjective: c/o dizziness Time Spent With Patient: 25 min Objective: Vital Signs (8 Hrs) Temp Pulse Resp BP Pulse Ox 04/19/17 07:13 36.7 C 62 13 132/80 H 90 L 04/19/17 04:00 36.7 C 66 17 157/93 H 90 L Intake/Output (24 Hrs) 04/18/17 04/19/17 04/20/17 05:59 05:59 05:59 Intake Total 700 Output Total 900 Balance -200 Intake: Oral (ml) 700 Output: Urine (ml) 900 Urinal 900 Other: Intake Quantity Yes Sufficient Number of Voids Toilet 1 Urinal 2 Result Diagrams: 04/18/17 05:02 04/18/17 05:02 - Physical Exam Constitutional: healthy appearing Eyes: PERRL Cardiovascular: regular rate and rhythm Respiratory: clear to auscultate bilat Gastrointestinal: normoactive bowel sounds Skin: warm Musculoskeletal: no muscular tenderness Neurologic: AAOx3 Psychiatric: interactive ICD10 Worksheet Patient Problems: Problems Problem Status Onset Syncope Acute Vertigo Acute COPD bronchitis Acute Coronary artery disease Acute Elevated troponin Acute Hypoxemia Acute Ischemic cardiomyopathy Acute Wheezing Acute
[2017-04-19] MEDS: FAMOTIDINE 20 MG TAB PO SCH ×2 (08:16→22:49)
[2017-04-19] MEDS: HYDROCORTISONE 10 MG TAB PO SCH ×2 (08:16→22:50)
[2017-04-19] MEDS: LISINOPRIL 10 MG TAB PO SCH (08:17)
[2017-04-19] MEDS: CARVEDILOL 6.25 MG TAB PO SCH ×2 (08:17→17:26)
[2017-04-19] MEDS: TERBINAFINE HCL 250 MG TAB PO SCH (08:18)
[2017-04-19] MEDS: ENOXAPARIN 40 MG/0.4 ML SYR SC SCH (08:19)
[2017-04-19] MEDS: ASPIRIN EC 81 MG TAB PO SCH (08:19)
[2017-04-19] MEDS: ATORVASTATIN CALCIUM 40 MG TAB PO SCH (08:19)
--- NOTE | 2017-04-19 08:46 | PDMN ---
Medical Necessity Medical necessity: change to IP; los>2mn for acute dizziness, possible primary adrenal insufficiency w/ hypotension, inability to complete ADS's and unsafe for d/c r/t symptoms; requires w/u with possible cath, medication adjustments; hx chronic systolic CHF,
[2017-04-19] MEDS ORDERED: MECLIZINE HCL 25 MG TAB PO PRN (12:06)
--- NOTE | 2017-04-19 12:27 | HOSPPROG ---
Hospitalist Progress Note Assessment/Plan: 52M with CAD, ICM p/w dizziness. Dizziness atypical, not clearly cardiac or BPPV. CAD/CHF stable per cardiology. Low cortisol, possible panhypoPit. # dizziness - atypical story overall; not really c/w cardiac, BPPV but will trial meclizine - neuro consult given MRI brain abnormality and unclear diagnosis - empiric meclizine # AI - check ACTH - no improvement in sx with empiric hydrocort; will continue for now - check labs for hypopituitarism (ACTH, TSH, GH, LH, FSH, prolactin) # sCHF - cont aldactone, added CHELSIE, decreased BB # CAD - total RCA occlusion with L to R collaterals - cont asa, BB # hx TBI, abnormal MRI - may be contributing to above presentation Subjective: still very dizzy with standing Objective: Vital Signs Temp Pulse Resp BP Pulse Ox 36.5 C 71 14 110/70 92 04/19/17 11:08 04/19/17 11:08 04/19/17 11:08 04/19/17 11:08 04/19/17 11:08 04/18/17 04/19/17 04/20/17 05:59 05:59 05:59 Intake Total 700 Output Total 900 Balance -200 PT 12.8 SEC (12.0-15.0) 04/17/17 13:29 INR 0.97 (0.83-1.16) 04/17/17 13:29 chart reviewed MRI reviewed - Physical Exam Constitutional: no apparent distress, appears nourished Cardiovascular: regular rate and rhythym, no murmur, rub, or gallop Respiratory: no respiratory distress, no rales or rhonchi, clear to auscultation Gastrointestinal: normoactive bowel sounds, soft, non-tender abdomen, no palpable masses ICD10 Worksheet Patient Problems: Problems Problem Status Onset COPD bronchitis Acute Elevated troponin Acute Coronary artery disease Acute Ischemic cardiomyopathy Acute Hypoxemia Acute Wheezing Acute Syncope Acute Vertigo Acute
[2017-04-19] MEDS: MECLIZINE HCL 25 MG TAB PO SCH ×2 (12:44→22:49)
[2017-04-19 13:51] LABS: FOLLICLE STIMULATING HORMONE 2.65 mIU/mL (1.55-9.74); LUTEINIZING HORMONE 4.04 mIU/mL (NOT ESTABLSHD); PROLACTIN 21.4 ng/mL (3.7-17.9)
[2017-04-19] MEDS: ACETAMINOPHEN 325 MG TAB PO PRN (14:58)
--- NOTE | 2017-04-19 15:27 | NEUROPROG ---
Assessment: HOSPITAL NEUROLOGY CONSULT REQUESTING: Jair Dexter MD REASON: dizziness, abnormal MRI HPI: 52 year old right-handed man with a history of chronic systolic heart failure, HTN, CAD, prior smoking presented to our facility 04/17 with vertigo. He states 2 days prior to admission he was doing some house cleaning. Specifically, he was dusting a table and when he arose from a crouching position he developed abrupt onset room-spinning dizziness. It has persisted since that time. The dizziness is episodic, lasting 3-15 seconds, and provoked by any type of head motion. Dizziness subsides by keeping still. He has experienced nausea and one bout of vomiting with this. He finds walking ot be a challenge, as the movement provokes dizziness making him unsteady on his feet. He denies any double vision, loss of vision, hearing changes, tinnitus, speech changes, language disturbance, sensory loss. No head/neck trauma and no head/neck pain. He reports one instance prior to admission of standing up and actually feeling lightheaded and passing out, much different than the dizziness. An MRI brain wo was done to rule out a central cause of symptoms and is discussed below. He continues to feel episodic dizziness today. ROS: As per the HPI, otherwise a complete 12 point ROS was performed and is negative ALLERGIES AND MEDS: As recorded in the EMR - reviewed and reconciled PFSH: As per the intake H&P by Dr. Wheeler from 04/17 EXAM: VS reviewed in EMR GEN: obese man laying in NAD, reading a book HEENT: NCAT, sclera anicteric, conjunctiva not injected, MMM, oropharynx clear, no scalp tenderness NECK: supple, nontender, no meningismus CV: RRR s1 s2 wo m/r/c/g. Carotid pulses 2+ wo bruit NEURO: MS: awake, alert, oriented to all spheres. Speech nondysarthric. No language disturbance. Follows commands. Attends to both sides. Recent/remote memory grossly intact. Mood anxious. Good fund of knowledge. CN: pupils 4mm round and reactive. Fundi with sharp discs. VFF. Primary gaze centered - no skew. Full ocular motility. Couple beats of rotatory nystagmus on horizontal end-gaze that fatigues with repeat testing. Facial sensation preserved. Face symmetric. Hearing grossly intact to finger rub. Palatoglossal movements intact. Shoulder shrug and head turn strong. MOTOR: normal bulk/tone. No adventitial movements. Full power throughout. SENSORY: intact to all modalities throughout. No extinction. COORD: no ataxia FN/HS. Gypsy preserved. REFLEX: plantars down. No clonus. DTRS 2/4. GAIT: he is too dizzy to walk safely per his report, so deferred DATA REVIEW: Labs reviewed in EMR PERSONALLY INTERPRETED RESULTS AND DATA: MRI brain wo - several scattered areas of T2 FLAIR hyperintensity in the subcortical white matter, likely reflective of chronic microvascular ischemic change. IMPRESSION AND RECOMMENDATIONS: // SUSPECT BPPV/PERIPHERAL VESTIBULOPATHY // SYNCOPAL EPISODE // CHRONIC MICROVASCULAR ISCHEMIC CHANGE ON MRI Patient with episodic short-lasting vertigo provoked by head movement. Semiology consistent with a peripheral vestibulopathy, likely of BPPV type. Syncopal episode unlikely to be related. MRI shows no abnormalities in the posterior fossa, but given syncope, would complete central cause rule out with CTA head/neck to evaluate the posterior circulation. Patient has a history of vascular disease and vascular risk factors (HTN, prior long-term smoking, CAD), and MRI is most consistent with microvascular ischemia - incidental findings. - CTA head/neck - PT for vestibular exercises such as Obed maneuvers - will need outpatient ENT evaluation after discharge for peripheral vestibulopathy - outpatient vestibular rehab - can trial meclizine or benzodiazepine for vestibular suppression - cont vascular risk factor management for further progression of white matter microvascular ischemia, namely cont antiplatelet and goal normotension (HTN is the number one risk factor for cerebrovascular disease). Longer term goal normoglycemia with A1c < 6.5. LDL is already < 62, but consider low-dose statin for pleiotropic effect, particularly with small vessel disease. Objective: Vital Signs Temp Pulse Resp BP Pulse Ox 36.3 C 61 13 131/80 H 92 04/19/17 15:05 04/19/17 15:05 04/19/17 15:05 04/19/17 15:05 04/19/17 15:05 04/18/17 04/19/17 04/20/17 05:59 05:59 05:59 Intake Total 700 900 Output Total 900 Balance -200 900 PT 12.8 SEC (12.0-15.0) 04/17/17 13:29 INR 0.97 (0.83-1.16) 04/17/17 13:29 Allergies/Adverse Reactions: No Known Allergies Allergy (Verified 04/17/17 12:35)
[2017-04-19] MEDS ORDERED: IOPAMIDOL (ISOVUE 370) 100 ML BTL IV ONE (15:49)
[2017-04-19] MEDS: traZODone 100 MG TAB PO SCH (22:49)
[2017-04-19] MEDS: DIAZEPAM 5 MG TAB PO SCH (22:50)
[2017-04-19] MEDS: TEMAZEPAM 15 MG CAP PO SCH (22:50)
[2017-04-20 05:55] LABS: % IMMATURE GRANULYOCYTES 0.3 % (0.0-1.1); ABSOLUTE IMMATURE GRANULOCYTES 0.02 10^3/uL (0.00-0.10); ADD DIFF? NO; ADD MORPH? NO; ADD SCAN? NO; ATYPICAL LYMPHOCYTE FLAG 0 (0-99); FRAGMENT RBC FLAG 0 (0-99); HEMATOCRIT 46.5 % (40.0-51.0); HEMOGLOBIN 15.2 g/dL (13.7-17.5); LEFT SHIFT FLG 0 (0-99); LIPEMIA HEMOLYSIS FLAG 80 (0-99); MEAN CELL HEMOGLOBIN 31.3 pg (27.9-34.1); MEAN CELL HEMOGLOBIN CONCENTR. 32.7 g/dL (32.4-36.7); MEAN CELL VOLUME 95.9 fL (81.5-99.8); MEAN PLATELET VOLUME 10.5 fL (8.7-11.7); PLATELET CLUMPS FLAG 0 (0-99); PLATELET COUNT 135 10^3/uL (150-400); RED BLOOD CELL COUNT 4.85 10^6/uL (4.40-6.38); RED CELL DISTRIBUTION WIDTH 13.1 % (11.5-15.2)
[2017-04-20 06:07] LABS: ANION GAP 4 mEq/L (8-16); CARBON DIOXIDE 30 mEq/l (22-31); CHLORIDE 103 mEq/L (97-110); CREATININE 0.9 mg/dL (0.7-1.3); GLOMERULAR FILTRATION RATE > 60; GLUCOSE 91 mg/dL (70-100); POTASSIUM 4.4 mEq/L (3.5-5.2); SODIUM 137 mEq/L (134-144)
[2017-04-20] MEDS: TERBINAFINE HCL 250 MG TAB PO SCH (08:32)
[2017-04-20] MEDS: oxyCODONE IR 5 MG TAB PO PRN ×3 (08:32→22:45)
[2017-04-20] MEDS: ASPIRIN EC 81 MG TAB PO SCH (08:32)
[2017-04-20] MEDS: ATORVASTATIN CALCIUM 40 MG TAB PO SCH (08:32)
[2017-04-20] MEDS: HYDROCORTISONE 10 MG TAB PO SCH ×2 (08:33→22:45)
[2017-04-20] MEDS: LISINOPRIL 10 MG TAB PO SCH (08:33)
[2017-04-20] MEDS: MECLIZINE HCL 25 MG TAB PO SCH ×2 (08:33→22:44)
[2017-04-20] MEDS: FAMOTIDINE 20 MG TAB PO SCH ×2 (08:33→17:48)
[2017-04-20] MEDS: SPIRONOLACTONE 25 MG TAB PO SCH (08:33)
[2017-04-20] MEDS: CARVEDILOL 6.25 MG TAB PO SCH ×2 (08:34→17:47)
[2017-04-20] MEDS: ENOXAPARIN 40 MG/0.4 ML SYR SC SCH (08:35)
--- NOTE | 2017-04-20 09:11 | SOAPPROG ---
SOAP Progress Note Assessment/Plan: Assessment: 52-year-old male typically followed as an outpatient by Dr. Rajendra Mckeon. He has an ischemic cardiomyopathy with an ejection fraction of 30-35% and by cardiac catheterization in 2016 and occluded/collateralized RCA. Additionally, he has a history of hypertension. He is admitted now with profound vertigo. He has been seen by Neurology and has had extensive workup. At this point it is thought that his vertigo is benign in nature. He is being treated with meclizine. At this point his symptoms have improved modestly. He remains hypertensive with no indication of overt heart failure. Plan: 1. Continue his current antihypertensive medications. Carefully follow his blood pressures during this hospitalization. Previous blood pressures have been more optimal than those noted today. 2. I will defer to his primary team regarding management of his BPV. 3. We will follow along at a distance. 04/20/17 10:26 Subjective: Patient was seen and examined. His chart was reviewed. Today states he feels a little bit better. He was able to sit up at the side of the bed without limiting symptoms of dizziness. He does note that if he tries to stand his dizziness is still severe. He has not had any arrhythmias. He notes no chest pain or symptoms of dyspnea. Objective: Vital Signs Temp Pulse Resp BP Pulse Ox 36.4 C 75 12 163/95 H 90 L 04/20/17 08:00 04/20/17 08:34 04/20/17 08:00 04/20/17 08:34 04/20/17 08:00 Laboratory Results 04/20/17 04:09 04/20/17 04:09 04/19/17 04/20/17 04/21/17 05:59 05:59 05:59 Intake Total 700 1600 Output Total 900 Balance -200 1600 PT 12.8 SEC (12.0-15.0) 04/17/17 13:29 INR 0.97 (0.83-1.16) 04/17/17 13:29 Physical Exam - Physical Exam General Appearance: WD/WN, no apparent distress Neck: non-tender, full range of motion Respiratory: chest non-tender, lungs clear, normal breath sounds, No respiratory distress, No accessory muscle use, No decreased breath sounds, No crackles Cardiac/Chest: regular rate, rhythm, No edema, No gallop, No JVD Peripheral Pulses: 2+: carotid (R), carotid (L) Abdomen: non-tender, soft Male Genitalia: deferred Rectal: deferred Neuro/Psych: alert, oriented x 3 ICD10 Worksheet Patient Problems: Problems Problem Status Onset Syncope Acute Vertigo Acute COPD bronchitis Acute Coronary artery disease Acute Elevated troponin Acute Hypoxemia Acute Ischemic cardiomyopathy Acute Wheezing Acute
[2017-04-20] MEDS ORDERED: CARVEDILOL 6.25 MG TAB PO ONE (09:30)
--- NOTE | 2017-04-20 10:53 | HOSPPROG ---
Hospitalist Progress Note Assessment/Plan: # dizziness - atypical story overall; not c/w cardiac; BPPV likely per neuro - empiric meclizine, trial of diazepam # HENDERSON - imaging negative - will increase oxy to his reported home dose (20mg); may be narcotic w/d, tension HENDERSON # AI - check ACTH - no improvement in sx with empiric hydrocort; will continue for now - check labs for hypopituitarism (ACTH, TSH, GH, LH, FSH, prolactin) - ACTH and GH pending, prolactin slightly elevated # sCHF - stable per cards - cont aldactone, added CHELSIE, decreased BB # CAD - total RCA occlusion with L to R collaterals - cont asa, BB # hx TBI, abnormal MRI - may be contributing to above presentation Subjective: still feels dizzy and c/o HENDERSON Objective: Vital Signs Temp Pulse Resp BP Pulse Ox 36.4 C 84 12 98/70 L 90 L 04/20/17 08:00 04/20/17 10:09 04/20/17 08:00 04/20/17 10:09 04/20/17 08:00 Laboratory Results 04/20/17 04:09 04/20/17 04:09 04/19/17 04/20/17 04/21/17 05:59 05:59 05:59 Intake Total 700 1600 Output Total 900 Balance -200 1600 PT 12.8 SEC (12.0-15.0) 04/17/17 13:29 INR 0.97 (0.83-1.16) 04/17/17 13:29 - Time Spent With Patient Time Spent with Patient: greater than 35 minutes Time Spent with Patient: Greater than 35 minutes spent on this patients care, greater than 50% of time spent counseling, educating, and coordinating care regarding the above mentioned plan. - Physical Exam Constitutional: uncomfortable Cardiovascular: regular rate and rhythym, no murmur, rub, or gallop, other ( distant S1S2) Respiratory: no respiratory distress, no rales or rhonchi, clear to auscultation ICD10 Worksheet Patient Problems: Problems Problem Status Onset Syncope Acute Vertigo Acute COPD bronchitis Acute Coronary artery disease Acute Elevated troponin Acute Hypoxemia Acute Ischemic cardiomyopathy Acute Wheezing Acute
[2017-04-20] MEDS: DIAZEPAM 5 MG TAB PO PRN ×2 (11:22→22:45)
--- NOTE | 2017-04-20 16:59 | ASMTCMCOM ---
CM Note CM Note Notes: Reviewed chart regarding discharge plan, pt's progress. Pt remains dizzy w/ c/o HENDERSON. Per MD notes, abnormal MRI, atypical presentation. PT/OT cont to rec home w/ outpt rehab. Anticipate pt will likely d/c home independently when medically stable. Discharge date remains TBD. CM will cont to follow for potential needs. Current Discharge Plan: Home independently Date Signed: 04/20/2017 04:58 PM Electronically Signed By:Radha Vang RN
[2017-04-20] MEDS: traZODone 100 MG TAB PO SCH (22:44)
[2017-04-20] MEDS: TEMAZEPAM 15 MG CAP PO SCH (22:45)
[2017-04-21] MEDS: ATORVASTATIN CALCIUM 40 MG TAB PO SCH (09:11)
[2017-04-21] MEDS: FAMOTIDINE 20 MG TAB PO SCH ×2 (09:11→17:24)
[2017-04-21] MEDS: TERBINAFINE HCL 250 MG TAB PO SCH (09:11)
[2017-04-21] MEDS: HYDROCORTISONE 10 MG TAB PO SCH ×2 (09:11→20:45)
[2017-04-21] MEDS: CARVEDILOL 6.25 MG TAB PO SCH ×2 (09:12→17:27)
[2017-04-21] MEDS: LISINOPRIL 10 MG TAB PO SCH (09:12)
[2017-04-21] MEDS: ASPIRIN EC 81 MG TAB PO SCH (09:13)
[2017-04-21] MEDS: ENOXAPARIN 40 MG/0.4 ML SYR SC SCH (09:13)
[2017-04-21] MEDS: oxyCODONE IR 5 MG TAB PO PRN ×3 (09:22→20:45)
[2017-04-21] MEDS: MECLIZINE HCL 25 MG TAB PO SCH ×2 (09:31→20:46)
--- NOTE | 2017-04-21 09:33 | SOAPPROG ---
SOAP Progress Note Assessment/Plan: Assessment: 52-year-old male typically followed as an outpatient by Dr. Rajendra Mckeon. He has an ischemic cardiomyopathy with an ejection fraction of 30-35% and by cardiac catheterization in 2016 and occluded/collateralized RCA. Additionally, he has a history of hypertension. He is admitted now with profound vertigo. He has been seen by Neurology and has had extensive workup. At this point it is thought that his vertigo is benign in nature. He is being treated with meclizine. At this point his symptoms have improved modestly. He remains hypertensive with no indication of overt heart failure. Plan: 1. I will defer to his primary team regarding management of his vertigo. Apparently there are plans for him to have an Obed treatment later today. 2. His cardiac status is stable. 3. We will sign off for now. 4. Please have him follow-up in our office 2-4 weeks after discharge. 04/21/17 09:32 Subjective: He states he is feeling a little bit better today. He continues to have dizziness. There are plans for him to have an Obed treatment later today. Objective: Vital Signs Temp Pulse Resp BP Pulse Ox 36.6 C 59 L 15 123/83 H 90 L 04/21/17 08:00 04/21/17 08:00 04/21/17 08:00 04/21/17 08:00 04/21/17 08:00 Laboratory Results 04/20/17 04:09 04/20/17 04:09 04/20/17 04/21/17 04/22/17 05:59 05:59 05:59 Intake Total 1600 300 Balance 1600 300 PT 12.8 SEC (12.0-15.0) 04/17/17 13:29 INR 0.97 (0.83-1.16) 04/17/17 13:29 Physical Exam - Physical Exam General Appearance: WD/WN, no apparent distress Neck: full range of motion, supple, normal inspection Respiratory: lungs clear Cardiac/Chest: regular rate, rhythm, No edema, No gallop, No JVD Peripheral Pulses: 2+: carotid (R), carotid (L) ICD10 Worksheet Patient Problems: Problems Problem Status Onset Syncope Acute Vertigo Acute COPD bronchitis Acute Coronary artery disease Acute Elevated troponin Acute Hypoxemia Acute Ischemic cardiomyopathy Acute Wheezing Acute
[2017-04-21] MEDS: ACETAMINOPHEN 325 MG TAB PO PRN (13:09)
[2017-04-21] MEDS: DIAZEPAM 5 MG TAB PO PRN ×2 (13:09→22:19)
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
[2017-04-21] MEDS: traZODone 100 MG TAB PO SCH (22:19)
[2017-04-21] MEDS: TEMAZEPAM 15 MG CAP PO SCH (22:19)
[2017-04-22] MEDS: oxyCODONE IR 5 MG TAB PO PRN ×3 (04:34→21:55)
[2017-04-22 08:28] LABS: GROWTH HORMONE 0.11 ng/mL
[2017-04-22] MEDS: TERBINAFINE HCL 250 MG TAB PO SCH (09:18)
[2017-04-22] MEDS: ASPIRIN EC 81 MG TAB PO SCH (09:19)
[2017-04-22] MEDS: SPIRONOLACTONE 25 MG TAB PO SCH (09:19)
[2017-04-22] MEDS: LISINOPRIL 10 MG TAB PO SCH (09:19)
[2017-04-22] MEDS: MECLIZINE HCL 25 MG TAB PO SCH (09:19)
[2017-04-22] MEDS: ATORVASTATIN CALCIUM 40 MG TAB PO SCH (09:19)
[2017-04-22] MEDS: CARVEDILOL 6.25 MG TAB PO SCH ×2 (09:20→19:19)
[2017-04-22] MEDS: HYDROCORTISONE 10 MG TAB PO SCH (09:20)
[2017-04-22] MEDS: ENOXAPARIN 40 MG/0.4 ML SYR SC SCH (09:21)
[2017-04-22] MEDS: FAMOTIDINE 20 MG TAB PO SCH ×2 (10:34→19:20)
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
[2017-04-22 11:40] LABS: ADRENOCORTICOTROPIC HORMONE <5.0 pg/mL
[2017-04-22] MEDS: CYCLOBENZAPRINE 10 MG TAB PO PRN (13:48)
[2017-04-22] MEDS: ACETAMINOPHEN 325 MG TAB PO PRN (17:39)
[2017-04-22] MEDS: DIAZEPAM 5 MG TAB PO PRN (17:39)
[2017-04-23] MEDS: TEMAZEPAM 15 MG CAP PO SCH (02:09)
[2017-04-23] MEDS: MECLIZINE HCL 25 MG TAB PO SCH ×2 (07:38→07:55)
[2017-04-23] MEDS: traZODone 100 MG TAB PO SCH (07:38)
[2017-04-23] MEDS: ENOXAPARIN 40 MG/0.4 ML SYR SC SCH (07:52)
[2017-04-23] MEDS: TERBINAFINE HCL 250 MG TAB PO SCH (07:52)
[2017-04-23] MEDS: LISINOPRIL 10 MG TAB PO SCH (07:52)
[2017-04-23] MEDS: oxyCODONE IR 5 MG TAB PO PRN (07:53)
[2017-04-23] MEDS: CARVEDILOL 6.25 MG TAB PO SCH (07:55)
[2017-04-23] MEDS: ATORVASTATIN CALCIUM 40 MG TAB PO SCH (07:55)
[2017-04-23] MEDS: FAMOTIDINE 20 MG TAB PO SCH (07:55)
[2017-04-23] MEDS: ASPIRIN EC 81 MG TAB PO SCH (07:55)
[2017-04-23] MEDS: SPIRONOLACTONE 25 MG TAB PO SCH (07:55)
[2017-04-23] MEDS ORDERED: HYDROCODONE/APAP 10/325 TAB PO PRN (10:04)
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
--- NOTE | 2017-04-23 10:30 | ASMTCMCOM ---
CM Note CM Note Notes: 04/23/2017 Case Management Note Discussed case w/. PT recommending outpatient rehab. Pt lives with room mate. Case Management d/c poc: remains home with support from room mate with outpatient rehab per PT. If pt requires SNF, case management will need to submit ULTC [address] [facility], typically a 4 business day process to determine pt eligiblity for SNF placement. Case Management to follow. Date Signed: 04/23/2017 10:29 AM Electronically Signed By:Chanda Rahman RN
[2017-04-23 11:35] VITALS: BP 127/82; PULSE 71; RESP 13; TEMP 98.7; O2SAT 91
[2017-04-23] MEDS: CYCLOBENZAPRINE 10 MG TAB PO PRN (12:12)
--- NOTE | 2017-04-23 15:25 | ASDISCHSUM ---
Discharge Information Plan Status:Home with No Needs Medically Cleared to Leave:04/22/2017 Discharge Date:04/23/2017 03:06 PM CM D/C Disposition:Home, Routine, Self-Care ADT D/C Disposition:Home, Routine, Self-Care Projected Discharge Date:04/23/2017 03:06 PM Transportation at D/C:Friend Discharge Delay Reason: Follow-Up Date:04/23/2017 03:06 PM Discharge Slot: Final Diagnosis: Placement Information Patient Contact Information Contact Name:ANATOLYGABRIELE Relationship:Other Address: Work Phone: City: [facility] Phone: State/Create Code: Email: Financial Information Financial Class: Primary Plan Desc:[employer] [place]ANA [place]ITER Primary Plan Number:[id number] Secondary Plan Desc: Secondary Plan Number: Assessment Information LACE LACE Acuity / Level of Care Answers: Was the patient admitted to hospital via the emergency department? Yes: Comorbidities - select Answers: Previous myocardial all that apply infarction Chronic pulmonary disease Emergency dept visits in Answers: 2 last 6 months Score: 8 Date Signed: 04/17/2017 03:07 PM Electronically Signed By:Nicki Nair RN [facility] CM Progress Note CM Note CM Note Notes: Patient admitted for investigation of recurrent syncope and chest pain in light of a significant cardiac history. Stress test, labs, and PT/OT evals pending. He lives with a roommate and is normally independent. He is very disturbed by his recent dizziness. PT evaluated him and anticipated an independent discharge with no needs, but we will continue to follow. Current CM discharge plan: TBD Date Signed: 04/18/2017 12:13 PM Electronically Signed By:Marisela Palacios RN [facility] CM Progress Note CM Note CM Note Notes: Reviewed chart regarding discharge plan, pt's progress. Pt remains dizzy w/ c/o HENDERSON. Per notes, abnormal MRI, atypical presentation. PT/OT cont to rec home w/ outpt rehab. Anticipate pt will likely d/c home independently when medically stable. Discharge date remains TBD. CM will cont to follow for potential needs. Current Discharge Plan: Home independently Date Signed: 04/20/2017 04:58 PM Electronically Signed By:Radha Vang RN [facility] CM Progress Note CM Note CM Note Notes: 04/23/2017 Case Management Note Discussed case w/MD. PT recommending outpatient rehab. Pt lives with room aga. Case Management d/c poc: remains home with support from room mate with outpatient rehab per PT. If pt requires SNF, case management will need to submit ULTC 100 application through [facility], typically a 4 business day process to determine pt eligiblity for SNF placement. Case Management to follow. Date Signed: 04/23/2017 10:29 AM Electronically Signed By:Chanda Rahman RN Case Management Discharge Plan Note Case Management Discharge Discharge Order Complete? Answers: Yes Patient to Obtain Answers: Independently Medications Transportation Arranged Answers: Family/Friends Discharge Comments Notes: Provided information for Pain Clinics that take Medicaid. [facility] in [place] [phone] or [facility] [phone]. Pt arranged ride home with friend. Date Signed: 04/23/2017 03:01 PM Electronically Signed By:Chanda Rahman RN Intervention Information
--- NOTE | 2017-04-24 02:44 | GDS ---
[f rep st] DISCHARGE SUMMARY ALL DIAGNOSES: 1. Benign paroxysmal positional vertigo. 2. Chronic pain, on continuous narcotics. 3. Possible adrenal insufficiency. 4. Systolic congestive heart failure with a low ejection fraction. 5. Coronary artery disease with a total RCA occlusion with [id number] collaterals. 6. Ejection fraction of 30% to 35%. 7. History of a traumatic brain injury and abnormal MRI. ALL CONSULTATIONS: 1. Cardiology. 2. Neurology. ALL PERTINENT STUDIES: 1. Head and neck CT angiogram showing widely patent carotid arteries with widely patent vertebral ar teries. 2. Nuclear stress test showing EF of 37%, moderate diffuse hypokinesis, moderate infarct in the infe rolateral wall with mild amount of post infarct ischemia inferiorly, which is unchanged from his prio r. 3. Brain MRI showing scattered bilateral subcortical and deep white matter hyperintensities. HOSPITAL COURSE BY PROBLEM: 1. Dizziness: After a significant workup, this is felt to be BPPV. He has been improving with mecl izine, Valium, and Obed maneuvers. He has been seen by Physical Therapy, feels that he is safe to g o home. He did have a fall at home and almost fell in the hospital sitting in bed. He will follow u p with outpatient Obed maneuvers. He has been taught how to do them himself. He has gotten a presc ription for Valium, as well as meclizine. 2. Questionable adrenal insufficiency: His morning cortisol was 0.6. He did have a stim that took him to 15. His ACTH was low. I discussed this with Dr. Macias on the phone. He had been tried on empiric steroids, which made no difference in his symptoms or his overall feeling. Because of thi s, I think that it is unlikely that he has adrenal insufficiency, and I have stopped the steroids. I do recommend that he follow up with Endocrinology, however. 3. Cardiac: He has a low ejection fraction about 35%, as well as known coronary artery disease. He has an abnormal nuclear stress test, which is unchanged from prior. Cardiology did not feel as thou gh his cardiac issues were causing his dizziness. 4. Abnormal MRI as above, as well as history of a TBI: He was seen by Neurology, who did not feel a s though this was causing his dizziness, either. BILLING: I spent more than 30 minutes on the day of discharge coordinating care. /[id number]/MODL
== END 2017-04-23 15:06 | disposition home or self-care (01) | DRG 149 ==
LOC: F2W 15:36 → OBSVTOIN 04-18 14:01
PROVIDERS: ADMIT Internal Medicine; ATTEND Internal Medicine
DX: H81.10 Benign paroxysmal vertigo, unspecified ear (principal); G89.29 Other chronic pain; F11.20 Opioid dependence, uncomplicated; I25.10 Atherosclerotic heart disease of native coronary artery without angina pectoris; I25.82 Chronic total occlusion of coronary artery; I25.2 Old myocardial infarction; I25.5 Ischemic cardiomyopathy; Z95.5 Presence of coronary angioplasty implant and graft; I50.22 Chronic systolic (congestive) heart failure; I11.0 Hypertensive heart disease with heart failure; Z87.820 Personal history of traumatic brain injury; K21.9 Gastro-esophageal reflux disease without esophagitis; J44.9 Chronic obstructive pulmonary disease, unspecified; E66.09 Other obesity due to excess calories; Z87.891 Personal history of nicotine dependence
CPT/HCPCS: 82024-90; 83003-90; 97112-GP; 97116-GP; 97161-GP; 97164-GP; 97165-GO; 97530-GP; A9500; G0378; J0834; J1650; J2785; Q9967

== ENCOUNTER → 2017-09-03 | Outpatient (CLI) | payer MEDICAID | LOC: SBRMNEURO 21:00 | PROVIDERS: ATTEND Psychiatry & Neurology Sleep Medicine | DX: G47.33 Obstructive sleep apnea (adult) (pediatric) (principal); G47.34 Idiopathic sleep related nonobstructive alveolar hypoventilation ==

== ENCOUNTER 2017-12-27 12:18 | Inpatient (IN) | payer MEDICAID ==
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
[2017-12-27 12:33] LABS: PLATELET COUNT 146 10^3/uL (150-400)
--- NOTE | 2017-12-27 12:34 | CPEKG ---
Heart Rate: 81 RR Interval: 741 P-R Interval: 152 QRSD Interval: 96 QT Interval: 416 QTC Interval: 483 P [place]: 51 QRS [place]: 50 T Wave [place]: 199 EKG Severity - ABNORMAL ECG - EKG Impression: SINUS RHYTHM EKG Impression: NONSPECIFIC T ABNORMALITIES, LATERAL LEADS EKG Impression: BORDERLINE PROLONGED QT INTERVAL Electronically Signed By: Rickey Parson 27-Dec-2017 13:10:29
[2017-12-27] MEDS ORDERED: oxyCODONE IR 5 MG TAB PO ONE (13:12)
[2017-12-27] MEDS ORDERED: IOPAMIDOL (ISOVUE 370) 100 ML BTL IV ONE (13:34)
[2017-12-27] MEDS ORDERED: ACETAMINOPHEN 325 MG TAB PO PRN (13:44)
[2017-12-27] MEDS ORDERED: ONDANSETRON DISINTEGRATING 4 MG TAB PO PRN (13:44)
[2017-12-27] MEDS ORDERED: ONDANSETRON 4 MG/2 ML VIAL IVP PRN (13:44)
[2017-12-27] MEDS ORDERED: ALBUTEROL 60 PUFFS/8 GM MDI IH PRN (14:29)
[2017-12-27] MEDS ORDERED: DIAZEPAM 5 MG TAB PO PRN ×2 (14:29→15:27)
[2017-12-27] MEDS ORDERED: HYDROCODONE/APAP 10/325 TAB PO SCH (15:00)
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
[2017-12-27] MEDS ORDERED: HYDROCODONE/APAP 10/325 TAB PO PRN (15:28)
--- NOTE | 2017-12-27 16:13 | ECHO ---
[email or web address] [address] [address] Main: [phone] Fax: Transthoracic Echocardiogram Name: LENNOX CARO MR#: [id number] Study Date: 12/27/2017 Study Time: 03:27 PM Date of : 1965 Age: 52 year(s) Height: 170.2 cm (67 in.) Weight: 113.4 kg (250 lb.) BSA: 2.22 m2 Gender: Male Examination: Echo Indication: Syncope/CHF Image Quality: Contrast: Requested by: Anai Mahan BP: 157 mmHg/84 mmHg Heart Rate: Rhythm: Indication: Syncope/CHF Procedure Staff Second Ride Fare Collector: Geovanna Galindo RDCS Reading Physician: Juwan Gaffney MD Requesting Provider: Conclusions: Mildly dilated left ventricle. The ejection fraction is estimated to be 60-65 %. No regional wall motion abnormality. Mild mitral valve regurgitation is present. Trivial aortic valve regurgitation. Trivial tricuspid valve regurgitation. Mildly dilated ascending aorta measuring 4.4 cm. No pericardial effusion. Compared to 04/18/2017, LV function has improved signifcantly. LVEF was previoulsy 25-30%. Measurements: Chambers Valvular Assessment AV/MV Valvular Assessment TV/PV Normal Normal Normal Name Value Range Name Value Range Name Value Range IVSd (2D): 1.0 cm (0.6 cm-1.1 AV Vmax: 1.28 m/s (1 m/s-1.7 cm) m/s) LVDd (2D): 6.4 cm (4.2 cm-5.9 AV meanP mmHg ( - ) cm) MV E Vmax: 0.56 m/s ( - ) LVPWd (2D): 1.2 cm (0.6 cm-1 MV A Vmax: 0.78 m/s ( - ) cm) MV E/A: 0.72 ( - ) EF Range: 60-65 % Continued Measurements: Chambers Valvular Assessment AV/MV Name Value Name Value LADs: 4.2 cm MV E' Septal: 0.05 m/s LADs Lon.0 cm MV E/E' Septal: 11.80 LA Area: 24.2 cm2 MV E/E' Lateral: 7.90 Patient: LENNOX CARO Study Date: 12/27/2017 Page 1 of 2 03:27 PM Additional Vessels Name Value Ao Ascendin.4 cm Findings: Left Ventricle: Mildly dilated left ventricle. No LV hypertrophy. Normal global systolic LV function. The ejection fraction is estimated to be 60-65 %. No regional wall motion abnormality. Right Ventricle: Normal size right ventricle. Left Atrium: The left atrium is normal in size. Right Atrium: The right atrium is normal in size. Mitral Valve: The mitral valve is normal in appearance and function. Mild mitral valve regurgitation is present. Aortic Valve: The aortic valve is normal in appearance and function. The aortic valve is tri-leaflet. Trivial aortic valve regurgitation. Tricuspid Valve: The tricuspid valve is normal in appearance and function. Trivial tricuspid valve regurgitation. Pulmonic Valve: The pulmonic valve is normal in appearance and function. Aorta: The aorta is normal. Mildly dilated ascending aorta measuring 4.4 cm. Pericardium: No pericardial effusion. (No Signature Object) Patient: LENNOX CARO Study Date: 12/27/2017 Page 2 of 2 03:27 PM [id number]
--- NOTE | 2017-12-27 16:20 | GCON ---
[f rep st] CONSULTATION REASON FOR ADMISSION: Patient is admitted to the hospital with a history of syncope. HISTORY OF PRESENT ILLNESS: The patient has come to the hospital with a history of passing out today . He was walking a bit, not for very many minutes. He may have had 2 seconds of chest pain in the l eft chest, but it was very brief, may not have had any, and he came to on the ground. He did not uri amari on himself. He had no incontinence. He did not have any seizure activity. There was a man sta nding there who watched him faint and he came right back to normal. The patient himself had a headac he before he blacked out and then had a headache now. He did hit his head. He was involved with [facility]. He reported to the emergency room doctor that he had been walking for about an hour. He told me he h ad been walking less than that, but he did have a few seconds of pain that was a sharp pain and then he blacked out and hit the ground. When I asked him, he said he had no shortness of breath, but the emergency room report says that he did have some shortness of breath just prior to the event. He has been having many episodes of syncope. He tells me that 2 months ago, he had syncope when he w as getting up in his living room and he just went down. He was admitted to [facility], had many tests, was there for several nights and then was discharged. Three months before that he w as in his bedroom, standing up, not doing much of anything and he had syncope. Between that event, leonora valentin was in October and 2016, he had 3-4 syncopal episodes. He does not have recently orthopnea, chest pain, except for today. No fevers, chills, cough. No hem optysis. He has not had trauma to the head, neck, or chest, except when he is blacking out like toda y, and hit his head. He does not have a history of atrial fibrillation. He has known coronary arter y disease. He has had heart failure before. He has no PND. He denies dyspnea on exertion, but he cannot walk very far right now, so it is hard t o measure up to exactly whether or not he would be dyspneic or not, if he could walk further. He has been taking his medications and has been relatively feeling well. CARDIAC RISK FACTORS: Positive for hypertension, for known coronary artery disease, for history of s moking up through 2014, for obesity, and for dyslipidemia. His cardiac risk factors are negative for diabetes mellitus, for a family history of premature ovalle ry disease, for history of hyperuricemia. He does not have a history of atrial fibrillation or other arrhythmias. He has not had a history of strokes. He has not had TIAs. His history also includes having obstructive sleep apnea. Patient has had coronary angiography that showed 100% right coronary occlusion with [id number]-sw-confv col laterals. His most recent nuclear test showed s[place]ia-infarction ischemia that was mild in inferolatera l distribution with an inferior infarction. Ejection fraction in the 35% range. The patient himself has not wanted an ICD. This is talked about multiple times in the charts. ALLERGIES: None. MEDICATIONS: 1. Ranitidine. 2. Atorvastatin. 3. Spironolactone. 4. Trazodone. 5. Restoril. 6. Lamisil. 7. Aspirin. 8. Coreg. 9. Valium. 10. Hydrocodone. 11. Zestril. FAMILY HISTORY: There is no family history of premature coronary disease. No history of unexplained sudden at a young age in his family. SOCIAL HISTORY: He was from [place]. At this time, he is living with his girlfriend who is healthy. 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 He has been out here for 5 years since his disability and he really enjoy s it. He tries to do some walking. He is limited by some arthritic complaints. He does not smoke. He does not drink significant amounts of alcohol. He does use oxycodone on a regular basis. Has chronic pain. PHYSICAL EXAMINATION: VITAL SIGNS: His blood pressure is 130/77, respiratory rate 14, afebrile. HE ENT: Neck supple. No tenderness of the neck. CARDIOVASCULAR: S1, S2. Soft systolic murmur at the left sternal border. No diastolic murmur. No S3, S4. No rubs. PULMONARY: Reveals rhonchi bilate rally. No rales, wheezing, or dullness. ABDOMEN: Soft, nontender, without masses. CVA: No tender ness. EXTREMITIES: No edema, inflammation or ulceration. NEURO: Cranial nerves 2-12 appear grossly normal. Motor and sensory appear to be intact. SKIN: Age-related changes. PSYCH: No obvious anxiety or depression. LAB: He had a D-dimer that was elevated and a negative CT chest. EKG shows nonspecific ST-T changes and no acute changes. His hematocrit is 44, platelets 146. Sodium 139, potassium 4.2, chloride 103, CO2 of 25, BUN 15, cre atinine 0.8. ASSESSMENT/PLAN: Coronary artery disease. The patient has a history of coronary artery disease with a right coronary occlusion with [id number] collaterals. He has no angina. He did have a very fe w seconds of chest pain today, that does not sound like typical angina at all and we will follow trop onins. The 1st troponin is 0. 1. He has been followed in the Cardiology Clinic. He does have a cardiomyopathy and would be a cand idate for an ICD and this will be followed up further with his own doctor, Dr. Mckeon, and the [facility] ent. 2. Unless we find some interventricular arrhythmias while he is in the hospital, this can continue t o be discussed with them. The patient so far has not wanted one in the past. Ischemic cardiomyopathy. 1. Patient is on medical therapy for his ischemic cardiomyopathy. He is taking his medications. He does not have significant dyspnea on exertion, edema, paroxysmal nocturnal dyspnea or orthopnea at t his time. 2. He will continue to follow his primary care doctor and with Dr. Mckeon. Chronic obstruction pulmonary disease. Syncope. 1. The patient had a syncopal episode and from what he tells me, he has had, he says 6 or maybe 7 sy ncopal episodes from June 03 until now. He has been in the hospital or emergency room multiple louisa es, most recently 2 months ago, he was in [facility] for several nights being evaluated for syncope. 2. He has been seen by Neurology. There is nothing to suggest seizure disorder. 3. They have not found any arrhythmias. 4. If nothing else is found and the patient stabilizes, he can follow up with Dr. Mckeon soon in doctors hospital office, and be considered for 30 day monitor or other monitoring techniques that might work for hi m. 5. This has been discussed in the past with all these episodes of syncope. Hypertension. 1. His blood pressure is high today and not as low as we would like it, so I think it would be excel lent to increase his dose of medications, but again let's not start that tonight because of his synco pe. We will see how his blood pressure responds while he is here in the hospital and we will monitor that. So for now, what we do is follow his troponins, watch him on a monitor and so far unless things garcia e, I do not see any reason to repeat an echocardiogram or a stress test at this point in time. He will need close followup in the Cardiology Clinic to consider further management of his blood pres sure and possible ICD placement. It would seem certainly logical to have Neurology and Ear, Nose and Throat, see the patient, given th e number of events he has been having. That may have been accomplished recently, and I am not sure of that. Thank you very much for asking us to see the patient. /[id number]/MODL
[2017-12-27] MEDS ORDERED: CARVEDILOL 25 MG TAB PO SCH (18:00)
[2017-12-27] MEDS ORDERED: DIAZEPAM 5 MG TAB PO SCH (21:00)
[2017-12-27] MEDS ORDERED: TEMAZEPAM 15 MG CAP PO SCH (21:00)
[2017-12-27] MEDS: oxyCODONE IR 5 MG TAB PO PRN (21:37)
[2017-12-27] MEDS: traZODone 50 MG TAB PO SCH (21:38)
[2017-12-27] MEDS: FAMOTIDINE 20 MG TAB PO SCH (21:38)
[2017-12-27] MEDS: CYCLOBENZAPRINE 10 MG TAB PO PRN (21:48)
[2017-12-27] MEDS: TEMAZEPAM 15 MG CAP PO PRN (21:48)
[2017-12-28] MEDS: ENOXAPARIN 40 MG/0.4 ML SYR SC SCH (08:14)
[2017-12-28] MEDS: FAMOTIDINE 20 MG TAB PO SCH ×2 (08:15→20:57)
[2017-12-28] MEDS: ATORVASTATIN CALCIUM 20 MG TAB PO SCH (08:15)
[2017-12-28] MEDS: oxyCODONE IR 5 MG TAB PO PRN ×3 (08:15→20:58)
[2017-12-28] MEDS: ASPIRIN EC 81 MG TAB PO SCH (08:15)
[2017-12-28] MEDS: TERBINAFINE HCL 250 MG TAB PO SCH (08:15)
[2017-12-28] MEDS: CYCLOBENZAPRINE 10 MG TAB PO PRN ×2 (08:15→20:57)
[2017-12-28] MEDS ORDERED: SPIRONOLACTONE 25 MG TAB PO SCH (09:00)
--- NOTE | 2017-12-28 09:16 | SOAPPROG ---
SOCRISTELA Progress Note Assessment/Plan: Assessment: 52 y/o man homeless with CAD and known 100% CEMETERY WARDEN RCA with recovered LVEF 63%, on chronic PO narcotics with syncopal spell. He is still very sore on his left chest and says every time he sits up he gets very dizziness. Unclear etiology as echo yesterday shows LVEF improved, telemetry shows only NSR with PVCs and troponin negative x 2. No signs of volume overload or angina. PLAN: 1)decrease Coreg to 12.5mg PO BID 2)start Losartan 25mg PO qam. 3)orthostatic vitals BID 4)IVF x one liter 5)monitor on tele for another 24hrs. 6)if no arrhythmias, don't think he needs another lexiscan cardiolite currently. Would do a 30 day event monitor as out-pt upon discharge maybe tomorrow. 12/28/17 09:11 Subjective: reports he is very dizzy when he sits up. No more syncopal spells. Sore on his left chest. Denies palpitations or PND. Has intermittent sharp CP. Objective: Vital Signs Temp Pulse Resp BP Pulse Ox 36.8 C 79 18 133/94 H 92 12/28/17 08:00 12/28/17 08:00 12/28/17 08:00 12/28/17 08:00 12/28/17 08:00 12/27/17 12/28/17 12/29/17 05:59 05:59 05:59 Intake Total 700 300 Balance 700 300 Physical Exam - Physical Exam General Appearance: alert, obese EENT: normal ENT inspection Neck: non-tender Respiratory: lungs clear Cardiac/Chest: regular rate, rhythm, systolic murmur (1/6 NARCISA heard.), No gallop , No JVD Peripheral Pulses: 2+: carotid (R), carotid (L), femoral (R), femoral (L), dorsalis-pedis (R), dorsalis-pedis (L) Abdomen: non-tender, No guarding Skin: warm/dry Extremities: No pedal edema Neuro/Psych: oriented x 3 ICD10 Worksheet Patient Problems: Problems Problem Status Onset Chest pain Acute Syncope Acute COPD bronchitis Acute Coronary artery disease Acute Elevated troponin Acute Hypoxemia Acute Ischemic cardiomyopathy Acute Vertigo Acute Wheezing Acute
[2017-12-28] MEDS ORDERED: NS 1,000 ML IV SCH (09:30)
--- NOTE | 2017-12-28 10:01 | HOSPPROG ---
Hospitalist Progress Note Assessment/Plan: #Syncope: EKG/trop negative. No PE on CTA. EF improved on echo, no WMA. -Evaluated Neurology Apr with normal carotid U/S, neck CTA. At that time, had recommended ENT FU for peripheral vestibulopathy -PT consulted for vestibulopathy therapy here -monitor on telemetry. Holding off stress testing at this time. 30-day event monitor at discharge #I-CDM: EF improved, now 60%. 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 Applied for housing, but none available for 3 weeks. CM to assist with housing options #Diet: regular #DVT ppx: Lovenox #Disp: change to inpatient admission for telemetry, PT, IVFs Subjective: left buttock sore. No chest pain Objective: Vital Signs Temp Pulse Resp BP Pulse Ox 36.8 C 79 18 133/94 H 92 12/28/17 08:00 12/28/17 08:00 12/28/17 08:00 12/28/17 08:00 12/28/17 08:00 12/27/17 12/28/17 12/29/17 05:59 05:59 05:59 Intake Total 700 300 Balance 700 300 - Time Spent With Patient Time Spent with Patient: greater than 35 minutes Time Spent with Patient: Greater than 35 minutes spent on this patients care, greater than 50% of time spent counseling, educating, and coordinating care regarding the above mentioned plan. - Physical Exam Constitutional: obese Eyes: PERRL Ears, Nose, Mouth, Throat: moist mucous membranes Cardiovascular: regular rate and rhythym Respiratory: no respiratory distress Gastrointestinal: normoactive bowel sounds, soft, non-tender abdomen Genitourinary: no bladder fullness Skin: warm Musculoskeletal: other (no bruising over left hip, FROM) Neurologic: AAOx3, CN II-XII Intact Psychiatric: interacting appropriately ICD10 Worksheet Patient Problems: Problems Problem Status Onset COPD bronchitis Acute Elevated troponin Acute Coronary artery disease Acute Ischemic cardiomyopathy Acute Hypoxemia Acute Wheezing Acute Syncope Acute Vertigo Acute Chest pain Acute
[2017-12-28] MEDS: LOSARTAN POTASSIUM 25 MG TAB PO SCH (10:35)
--- NOTE | 2017-12-28 11:05 | ASMTCMCOM ---
CM Note CM Note Notes: CM reviewed chart for D/C. Pt is a 52 y/o male with hx of coronary heart disease with chronic total occlusion of the RCA.Pt woke up yesterday morning and was "blah" and tired. He was walking when he developed sharp, midsternal and left-sided chest pain, shortness of breadth and diaphoressis and passed out. He has had increased fatigue and shortness of breadth this last week which has interfered with his walking. Pt had been living in [place] with his GF, but due to their break-up he is now homeless. He is signed up with [facility] and is anticipating housing in 3 weeks. He is very stressed as to where he will live until then. 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 Pt was hoping a respite bed or a hotel voucher could be secured. He has been told that a nursing home bad can be reserved for him on the day he is D/Thony. CM will follow. D/C Plan: TBD Date Signed: 12/28/2017 11:04 AM Electronically Signed By:Karin Giles
[2017-12-28] MEDS: NITROGLYCERIN 0.4 MG BTL SL PRN ×2 (14:51→20:39)
--- NOTE | 2017-12-28 15:30 | PDMN ---
Medical Necessity Medical necessity: Pt meets INPT criteria per MD as of 12/28/17 (est. LOS >2 MN for ongoing eval/mgmt of syncope, peripheral vestibulopathy; comorbid CDM, MUKUL, obesity, CAD; requiring tele monitoring, PT, IVFs).
[2017-12-28] MEDS: CARVEDILOL 6.25 MG TAB PO SCH (18:27)
[2017-12-28] MEDS: traZODone 50 MG TAB PO SCH (23:00)
[2017-12-28] MEDS: TEMAZEPAM 15 MG CAP PO PRN (23:00)
[2017-12-29] MEDS: ATORVASTATIN CALCIUM 20 MG TAB PO SCH (08:08)
[2017-12-29] MEDS: FAMOTIDINE 20 MG TAB PO SCH (08:08)
[2017-12-29] MEDS: ASPIRIN EC 81 MG TAB PO SCH (08:08)
[2017-12-29 08:09] VITALS: BP 148/90
[2017-12-29] MEDS: ENOXAPARIN 40 MG/0.4 ML SYR SC SCH (08:09)
[2017-12-29] MEDS: LOSARTAN POTASSIUM 25 MG TAB PO SCH (08:09)
[2017-12-29] MEDS: CYCLOBENZAPRINE 10 MG TAB PO PRN (08:09)
[2017-12-29] MEDS: oxyCODONE IR 5 MG TAB PO PRN (08:09)
[2017-12-29] MEDS: TERBINAFINE HCL 250 MG TAB PO SCH (08:09)
[2017-12-29] MEDS: CARVEDILOL 6.25 MG TAB PO SCH (09:25)
--- NOTE | 2017-12-29 10:17 | ASMTLACE ---
LACE Length of stay for Answers: Less than 1 day current admission Comorbidities - select Answers: Congestive heart failure all that apply Coronary Artery Disease # of Emergency department Answers: 1-2 visits in the last 6 months Social determinants Answers: Homelessness (street, mcc) Score: 8 Date Signed: 12/29/2017 10:17 AM Electronically Signed By:Kassy Carpenter RN
--- NOTE | 2017-12-29 10:17 | ASDISCHSUM ---
Discharge Information Plan Status:Home with No Needs Medically Cleared to Leave:12/29/2017 Discharge Date:12/29/2017 CM D/C Disposition:Streets (Homeless) ADT D/C Disposition:Home, Routine, Self-Care Projected Discharge Date:12/29/2017 Transportation at D/C:Self Discharge Delay Reason: Follow-Up Date:12/29/2017 Discharge Slot: Final Diagnosis: Placement Information Patient Contact Information Contact Name:GETACHEW Relationship:Other Address: Work Phone: City: [facility] Phone: State/Zip Code: Email: Financial Information Financial Class:Medicaid Primary Plan Desc:MEDICAID HEALTH FIRST WOMEN'S [employer]IES [place] Primary Plan Number:[id number] Secondary Plan Desc: Secondary Plan Number: Assessment Information [facility] CM Progress Note CM Note CM Note Notes: CM reviewed chart for D/C. Pt is a 52 y/o male with hx of coronary heart disease with chronic total occlusion of the RCA.Pt woke up yesterday morning and was "blah" and tired. He was walking when he developed sharp, midsternal and left-sided chest pain, shortness of breadth and diaphoressis and passed out. He has had increased fatigue and shortness of breadth this last week which has interfered with his walking. Pt had been living in [place] with his GF, but due to their break-up he is now homeless. He is signed up with [facility] and is anticipating housing in 3 weeks. He is very stressed as to where he will live until then. 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 Pt was hoping a respite bed or a hotel voucher could be secured. He has been told that a prison bad can be reserved for him on the day he is D/Thony. CM will follow. D/C Plan: TBD Date Signed: 12/28/2017 11:04 AM Electronically Signed By:Karin Giles Intervention Information
--- NOTE | 2017-12-29 10:19 | ASMTCMCOM ---
CM Note CM Note Notes: Medically cleared for discharge to home. [facility] and has [facility] bed at [facility]. No other needs identified. CM available should needs arise. Plan: Home with no services. Date Signed: 12/29/2017 10:19 AM Electronically Signed By:Kassy Carpenter RN
--- NOTE | 2017-12-29 13:19 | GDS ---
[f rep st] DISCHARGE SUMMARY DISCHARGE DIAGNOSES: 1. Syncope. 2. Dizziness. 3. Ischemic cardiomyopathy. 4. Obstructive sleep apnea on CPAP. 5. Obesity. 6. Coronary disease with chronic total occlusion right coronary artery. 7. Gastroesophageal reflux disease. 8. Recent homelessness. 9. Hyperlipidemia. 10. Traumatic brain injury. 11. Chronic hypoxic respiratory failure on oxygen at night. 12. Mild to moderate pulmonary hypertension. PRIMARY RUBBER WASHER: Rajendra Mckeon MD HISTORY OF PRESENT ILLNESS: A 50-year-old male with history of coronary artery disease with chronic total occlusion of RCA with collaterals, ischemic cardiomyopathy, presenting after a syncopal episode. He woke up in the morning, felt blah and not like himself. He was walking to a homeless day program to look for housing and developed midsternal and left-sided chest pain, shortness of breath, diaphoresis, and passed out. He says he normally walks 1 to 2 miles a day, but has not been able to for the past week due to increased fatigue. Denies PND, pillow orthopnea, or lower extremity swelling. HOSPITAL COURSE: 1. Syncope: Unclear etiology. EKG and troponin were negative for ischemia. No PE. Lexiscan April of 2017, with no evidence of ischemia. Cardiology consulted and did not recommend further cardiac eval. Arrange for a 30-day Holter monitor. 2. COPD: No evidence of exacerbation. 3. Hypertension: Resumed home medications. 4. Hyperlipidemia. Statin. 5. Compensated systolic heart failure/ischemic cardiomyopathy: improved EF to 60%, previously 45%. Reduced Coreg to 12.5 mg twice daily and added losartan 25 mg. Patient's blood pressure remains stable here. 6. Dizzy episodes: Unclear if this is related to an arrhythmia. He was evaluated April 2017, here with negative carotid ultrasound and seen by Neuro. Was advised to follow up with ENT and has not. 8. Chronic hypoxic respiratory failure: Continue oxygen at night. 9. MUKUL CPAP. 10. Homelessness: We will have housing in 3 weeks. [facility]. 11. Patient is stable for discharge. DISCHARGE MEDICATIONS: 1. Decreased Coreg to 12.5 mg b.i.d. 2. Added losartan 25 mg daily. FOLLOW UP: 1. [facility] for Holter monitor. Patient will call on Wednesday when he gets his phone. 2. ENT for evaluation for peripheral vestibulopathy. PHYSICAL EXAMINATION: VITAL SIGNS: Today: Temperature 36.6, blood pressure is 148/90, heart rate in the 60s, respirations 16, 91% on room air. Orthostatics were normal. GENERAL: He is obese in no acute distress. HEENT: PERRLA. Moist mucous membranes. CV: Bradycardic, but regular. LUNGS: Diminished, but no crackles. ABDOMEN: Obese, soft, nontender, nondistended. Positive bowel sounds. : No Fernández. MUSCULOSKELETAL: 5/5 upper and lower extremity strength. NEURO: 2 through 12 intact. PSYCH: Alert and oriented x3. Time spent on discharge greater than 30 minutes coordinating followup plan, discussing case with Dr. King, Cardiology. /[id number]/MODL MTDD
== END 2017-12-29 11:50 | disposition home or self-care (01) | DRG 204 ==
LOC: EDUNIT# → F2W 15:00 → OBSVTOIN 12-28 13:35
PROVIDERS: ADMIT Internal Medicine; ATTEND Internal Medicine
DX: R55 Syncope and collapse (principal); I25.5 Ischemic cardiomyopathy; G47.33 Obstructive sleep apnea (adult) (pediatric); I25.10 Atherosclerotic heart disease of native coronary artery without angina pectoris; I25.82 Chronic total occlusion of coronary artery; J44.9 Chronic obstructive pulmonary disease, unspecified; I10 Essential (primary) hypertension; E66.9 Obesity, unspecified; K21.9 Gastro-esophageal reflux disease without esophagitis; E78.5 Hyperlipidemia, unspecified; J96.11 Chronic respiratory failure with hypoxia; I27.20 Pulmonary hypertension, unspecified; F17.200 Nicotine dependence, unspecified, uncomplicated; Z59.0 Homelessness; Z87.820 Personal history of traumatic brain injury
CPT/HCPCS: 84484-PO; G0378; J1650; Q9967

== ENCOUNTER 2018-01-23 18:50 | Emergency (ER) | payer MEDICAID ==
[2018-01-23] MEDS ORDERED: IPRATROPIUM/ALBUTEROL 3 ML DEYVIAL IH ONE (19:19)
[2018-01-23 19:30] LABS: PLATELET COUNT 168 10^3/uL (150-400)
--- NOTE | 2018-01-23 19:38 | EDPHY ---
H & P Time Seen by Provider: 01/23/18 19:16 HPI/ROS: Chief complaint. Cough, vomiting HPI. 52-year-old male presents emergency department with 1 day history of cough and vomiting. He tells me he awoke this morning he was somewhat dizzy. He then developed quite a deep cough. He was nauseated had vomiting x2. He did have some upper respiratory runny nose and congestion yesterday. No fever. He has retrosternal chest discomfort that he describes as burning, pressure, sharp and this is been present since 4:00 p.m. Which is about 3 and 0.5 hr ago. He saw his PCP this evening and was referred to the emergency department. His chest discomfort is worse with cough but it is achy in between times as well. However otherwise no change with exertion for his chest discomfort. He does tell me he is short of breath with exertion. He also has some upper abdominal pain with cough. No recent travel. Friend diagnosed with pneumonia. ROS Constitutional. no fever/chills, no weakness Eyes. no problems with vision ENT. no sore throat, no nasal drainage Cardiovascular. Chest pain Respiratory. Shortness of breath Abdominal. Upper abdominal discomfort with nausea and vomiting . no problems urinating MS. no calf pain/swelling, no neck/back pain, no joint pain Skin. no rash Lymph. no swollen glands Neuro. no headache, dizziness, no difficulty walking or with speech Past Medical/Surgical History: Past medical history is significant for MD x4, coronary artery disease, chronic back pain, GERD, COPD, CHF, hypertension, dyslipidemia, pneumonia Social History: Single, nonsmoker, no alcohol Smoking Status: Former smoker Physical Exam: General Appearance: Alert well-developed male moderate distress vital signs show the patient be afebrile. Heart rate 104. O2 saturation room air 91% Eyes: Pupils equal and round no pallor or injection. ENT, Mouth: Mucous membranes are moist. Respiratory: There are no retractions, lungs are clear to auscultation. Cardiovascular: Regular rate and rhythm. No murmur. Tenderness to palpation of the sternum recreating his symptoms. Gastrointestinal: Abdomen is firm with upper abdominal tenderness. No masses. Neurological: Awake and alert, sensory and motor exams grossly normal. Skin: Warm and dry, no rashes. Musculoskeletal: Neck is supple nontender. Extremities symmetrical, full range of motion. Psychiatric: Patient is oriented X 3, there is no agitation. Constitutional: Initial Vital Signs Temperature (C) 37 C 01/23/18 18:55 Heart Rate 104 H 01/23/18 18:55 Respiratory Rate 20 01/23/18 18:55 Blood Pressure 139/88 H 01/23/18 18:55 O2 Sat (%) 91 L 01/23/18 18:55 O2 Delivery Mode Room Air Allergies/Adverse Reactions: No Known Allergies Allergy (Verified 01/23/18 18:53) Home Medications: Medication Instructions Recorded Ranitidine HCl [Zantac] 150 mg PO BID 10/25/16 traZODone [traZODONE 50MG (*)] 50 mg PO HS #60 tab 03/12/17 Cyclobenzaprine [Flexeril 10 MG 10 mg PO BID PRN 04/17/17 (*)] Temazepam [Restoril 15 MG (*)] 15 mg PO HS 04/17/17 Terbinafine HCl [LamISIL 250 MG 250 mg PO DAILY 04/17/17 (*)] Aspirin EC [Aspirin EC 81 mg (*)] 81 mg PO DAILY tab 04/23/17 Albuterol [Proventil Inhaler HFA 1 - 2 puffs IH Q4H PRN 12/27/17 (*)] Atorvastatin Calcium [Lipitor 20 20 mg PO DAILY 12/27/17 mg (*)] Diazepam [Valium 5 MG (*)] 5 mg PO DAILY PRN 12/27/17 Diazepam [Valium 5 MG (*)] 5 mg PO HS 12/27/17 Oxycodone Ir (*) 10 mg PO Q6H PRN 12/27/17 Spironolactone [Aldactone 25 MG 25 mg PO Q2D 12/27/17 (*)] Carvedilol [Coreg (*)] 12.5 mg PO BIDMEAL #30 tab 12/29/17 Losartan Potassium [Cozaar 25 mg 25 mg PO DAILY #30 tab 12/29/17 (*)] Albuterol Hfa Anes Only [Proair 2 puffs IH QID PRN #1 mdi 01/23/18 Hfa Icu (*)] Benzonatate [Tessalon Pearles (RX)] 100 mg PO TID PRN #20 cap 01/23/18 Prozac 10 MG (*) 01/23/18 Medical Decision Making - Diagnostics EKG Interpretation: EKG interpreted by me shows normal sinus rhythm normal interval and axis. QRS is normal there is no significant ST elevation or depression. There is some lateral T-wave flattening. No arrhythmia. The rate is 94 Repeat EKG is unchanged. Rate is 85 Imaging Results: Imaging Impressions Chest X-Ray 01/23/18 19:18 Impression: No evidence of pneumonia, pneumothorax, or pleural effusion. Chest/Thorax CTA 01/23/18 20:37 Impression: 1. No evidence of acute pulmonary embolism or thoracic aortic dissection. 2. Ascending thoracic aortic ectasia. 3. Mild cardiomegaly with severe coronary artery disease. These findings were discussed with Dr. Adame at 9:30 PM on 01/23/2018 Chest x-ray interpreted by me shows no obvious pneumonia CT pulmonary angiogram for indication of shortness of breath and elevated D- dimer is negative for PE or pneumonia Procedures: IV normal saline, monitor DuoNeb updraft ED Course/Re-evaluation: Re-evaluation 8:30 p.m.. Patient tells me he just had a coughing episode and his sternum is really hurting him. He and I discussed labs and evaluation including elevated D-dimer and recommendation for CT he expresses understanding and agreement. He will be treated for pain as well. Re-evaluation at 10:15 p.m.. Repeat troponin is negative. Patient is stable. He and I discussed imaging and lab results. We discussed treatment plan including criteria for return importance of follow-up and further evaluation. He expresses understanding and agreement Differential Diagnosis: I considered pneumonia, COPD exacerbation, acute coronary syndrome, pulmonary embolus. - Data Points Laboratory Results: Laboratory Results 01/23/18 19:18 01/23/18 19:18 01/23/18 01/23/18 01/23/18 21:52 19:56 19:18 WBC RBC Hgb Hct MCV MCH MCHC RDW Plt Count MPV Neut % (Auto) Lymph % (Auto) [place] % (Auto) Eos % (Auto) Baso % (Auto) Nucleat RBC Rel Count Absolute Neuts (auto) Absolute Lymphs (auto) Absolute Monos (auto) Absolute Eos (auto) Absolute Basos (auto) Absolute Nucleated RBC Immature Gran % Immature Gran # D-Dimer Sodium Potassium Chloride Carbon Dioxide Anion Gap BUN Creatinine Estimated GFR Glucose Calcium POC Troponin I 0.00 ng/mL ng/mL 0.00 ng/mL ng/mL (0.00-0.08) (0.00-0.08) Lipase 85 IU/L IU/L (23-300) 01/23/18 01/23/18 01/23/18 19:18 19:18 19:18 WBC 7.84 10^3/uL 10^3/uL (3.80-9.50) RBC 5.06 10^6/uL 10^6/uL (4.40-6.38) Hgb 15.7 g/dL g/dL (13.7-17.5) Hct 46.7 % % (40.0-51.0) MCV 92.3 fL fL (81.5-99.8) MCH 31.0 pg pg (27.9-34.1) MCHC 33.6 g/dL g/dL (32.4-36.7) RDW 13.9 % % (11.5-15.2) Plt Count 168 10^3/uL 10^3/uL (150-400) MPV 9.9 fL fL (8.7-11.7) Neut % (Auto) 70.0 % % (39.3-74.2) Lymph % (Auto) 20.7 % % (15.0-45.0) [place] % (Auto) 5.6 % % (4.5-13.0) Eos % (Auto) 2.8 % % (0.6-7.6) Baso % (Auto) 0.6 % % (0.3-1.7) Nucleat RBC Rel Count 0.0 % % (0.0-0.2) Absolute Neuts (auto) 5.49 10^3/uL 10^3/uL (1.70-6.50) Absolute Lymphs (auto) 1.62 10^3/uL 10^3/uL (1.00-3.00) Absolute Monos (auto) 0.44 10^3/uL 10^3/uL (0.30-0.80) Absolute Eos (auto) 0.22 10^3/uL 10^3/uL (0.03-0.40) Absolute Basos (auto) 0.05 10^3/uL 10^3/uL (0.02-0.10) Absolute Nucleated RBC 0.00 10^3/uL 10^3/uL (0-0.01) Immature Gran % 0.3 % % (0.0-1.1) Immature Gran # 0.02 10^3/uL 10^3/uL (0.00-0.10) D-Dimer 0.62 ug/mLFEU H ug/mLFEU (0.00-0.50) Sodium 140 mEq/L mEq/L (135-145) Potassium 4.1 mEq/L mEq/L (3.3-5.0) Chloride 103 mEq/L mEq/L (97-110) Carbon Dioxide 29 mEq/l mEq/l (22-31) Anion Gap 8 mEq/L mEq/L (8-16) BUN 21 mg/dL mg/dL (7-23) Creatinine 1.0 mg/dL mg/dL (0.7-1.3) Estimated GFR > 60 Glucose 133 mg/dL H mg/dL (70-100) Calcium 9.5 mg/dL mg/dL (8.5-10.4) POC Troponin I Lipase Medications Given: Discontinued Medications Albuterol/Ipratropium (Duoneb) 3 ml IH EDNOW ONE Stop: 01/23/18 19:20 Last Admin: 01/23/18 19:24 Dose: 3 ml Sodium Chloride (Ns) 1,000 mls @ 0 mls/hr IV ONCE ONE; Wide Open PRN Reason: Protocol Stop: 01/23/18 20:38 Last Admin: 01/23/18 20:42 Dose: 1,000 mls Morphine Sulfate (Morphine) 6 mg IVP EDNOW ONE Stop: 01/23/18 20:38 Last Admin: 01/23/18 20:43 Dose: 6 mg Point of Care Test Results: Chemistry 01/23/18 01/23/18 21:52 19:56 POC Troponin I 0.00 ng/mL ng/mL 0.00 ng/mL ng/mL (0.00-0.08) (0.00-0.08) Departure - Departure Disposition: Home, Routine, Self-Care Clinical Impression: Acute bronchitis Qualifiers: Bronchitis organism: unspecified organism Qualified Code(s): J20.9 - Acute bronchitis, unspecified Condition: Good Instructions: Acute Bronchitis (ED) Additional Instructions: Drink plenty of fluids and stay hydrated. Ibuprofen 600 mg every 6 hr for fever as well as discomfort. Tessalon Марина to help with cough Albuterol inhaler using 2 puffs every 4-6 hours to help with cough and breathing Return for worsening symptoms. Recheck by Dr. Jose tomorrow without fail Referrals: Ludy Jose [Primary Care Provider] - 1 day without fail Prescriptions: Albuterol Hfa Anes Only [Proair Hfa Icu (*)] 2 puffs IH QID PRN #1 mdi PRN Reason: Short Of Breath/Dyspnea Benzonatate [Tessalon Pearles (RX)] 100 mg PO TID PRN #20 cap PRN Reason: Cough, Moderate
[2018-01-23] MEDS ORDERED: NS 1,000 ML IV ONE (20:37)
[2018-01-23] MEDS ORDERED: IOPAMIDOL (ISOVUE 370) 100 ML BTL IV ONE (20:46)
[2018-01-23] MEDS ORDERED: BENZONATATE 100 MG CAP PO ONE ×2 (22:24→22:26)
[2018-01-23] MEDS ORDERED: ALBUTEROL INH PREPACK MDI TAKEHOME ONE ×2 (22:25)
[2018-01-23 22:32] VITALS: BP 134/74
--- NOTE | 2018-01-26 07:08 | CPEKG ---
Test Reason : OPEN Blood Pressure : / mmHG Vent. Rate : 085 BPM Atrial Rate : 085 BPM P-R Int : 152 ms QRS Dur : 098 ms QT Int : 412 ms P-R-T Axes : 030 044 -81 degrees QTc Int : 490 ms Sinus rhythm Borderline T abnormalities, inferior leads Borderline prolonged QT interval Confirmed by Lewis Adame ([id number]) on 01/26/2018 7:08:38 AM Referred By: Confirmed By:Lewis Adame
--- NOTE | 2018-01-26 07:08 | CPEKG ---
Test Reason : OPEN Blood Pressure : / mmHG Vent. Rate : 094 BPM Atrial Rate : 096 BPM P-R Int : 151 ms QRS Dur : 100 ms QT Int : 388 ms P-R-T Axes : 043 047 236 degrees QTc Int : 486 ms Sinus rhythm Borderline prolonged QT interval Confirmed by Lewis Adame ([id number]) on 01/26/2018 7:08:32 AM Referred By: Confirmed By:Lewis Adame
== END 2018-01-23 22:32 | disposition home or self-care (01) ==
DX: J20.9 Acute bronchitis, unspecified (principal); E86.9 Volume depletion, unspecified; Z87.891 Personal history of nicotine dependence
CPT/HCPCS: 84484-PO; 96374; J2270; Q9967

== ENCOUNTER 2018-02-04 12:26 | Emergency (ER) | payer MEDICAID ==
--- NOTE | 2018-02-04 13:03 | EDPHY ---
H & P Stated Complaint: COUGH/SEEN FREQ /NOT GETTING BETTER Time Seen by Provider: 02/04/18 12:53 HPI/ROS: CHIEF COMPLAINT: Cough, presyncope HISTORY OF PRESENT ILLNESS: The patient presents to the emergency department for complaints of a chronic cough and presyncope for the past 2 weeks. The patient reports he has been seen in the emergency department for this condition and had a negative CT pulmonary angiogram approximately week ago. He saw his primary care provider restarted him on antibiotics over the weekend. He has been taken Levaquin without improvement. He continues to use albuterol. The patient did attempt a trial of prednisone without improvement of his symptoms. The patient was hospitalized at the end of December with multiple complaints including chest pain and presyncope. He had a negative evaluation at that point time. He was started on losartan during that hospitalization. REVIEW OF SYSTEMS: A comprehensive 10 point review of systems is otherwise negative aside from elements mentioned in the history of present illness. Source: Patient - Personal History Current Tetanus Diphtheria and Acellular Pertussis (TDAP): Yes Tetanus Vaccine Date: 2010 - Medical/Surgical History Hx Asthma: No Hx Chronic Respiratory Disease: Yes Hx Diabetes: No Hx Cardiac Disease: Yes Hx Renal Disease: No Hx Cirrhosis: No Hx Alcoholism: No Hx HIV/AIDS: No Hx Splenectomy or Spleen Trauma: No Other PMH: CYST REMOVAL, CA x4, CAD, chronic back pain, GERD, COPD, chf, hypertension, hyperlipidemia, jefe, PNA - Social History Smoking Status: Former smoker - Physical Exam Exam: General Appearance: Alert, no distress Eyes: Pupils equal and round no pallor or injection ENT, Mouth: Mucous membranes moist Respiratory: Occasional expiratory wheeze Cardiovascular: Regular rate and rhythm Gastrointestinal: Abdomen is soft and nontender, no masses, bowel sounds normal Neurological: 5/5 strength all 4 extremities Skin: Warm and dry, no rashes Musculoskeletal: Neck is supple nontender Extremities: symmetrical, full range of motion Psychiatric: Patient is oriented X 3, there is no agitation Constitutional: Initial Vital Signs Temperature (C) 36.6 C 02/04/18 12:29 Heart Rate 99 02/04/18 12:29 Respiratory Rate 18 02/04/18 12:29 Blood Pressure 139/103 H 02/04/18 12:29 O2 Sat (%) 95 02/04/18 12:29 O2 Delivery Mode Room Air Allergies/Adverse Reactions: No Known Allergies Allergy (Verified 02/04/18 12:27) Home Medications: Medication Instructions Recorded Ranitidine HCl [Zantac] 150 mg PO BID 10/25/16 traZODone [traZODONE 50MG (*)] 50 mg PO HS #60 tab 03/12/17 Cyclobenzaprine [Flexeril 10 MG 10 mg PO BID PRN 04/17/17 (*)] Temazepam [Restoril 15 MG (*)] 15 mg PO HS 04/17/17 Terbinafine HCl [LamISIL 250 MG 250 mg PO DAILY 04/17/17 (*)] Aspirin EC [Aspirin EC 81 mg (*)] 81 mg PO DAILY tab 04/23/17 Albuterol [Proventil Inhaler HFA 1 - 2 puffs IH Q4H PRN 12/27/17 (*)] Atorvastatin Calcium [Lipitor 20 20 mg PO DAILY 12/27/17 mg (*)] Diazepam [Valium 5 MG (*)] 5 mg PO DAILY PRN 12/27/17 Diazepam [Valium 5 MG (*)] 5 mg PO HS 12/27/17 Oxycodone Ir (*) 10 mg PO Q6H PRN 12/27/17 Spironolactone [Aldactone 25 MG 25 mg PO Q2D 12/27/17 (*)] Carvedilol [Coreg (*)] 12.5 mg PO BIDMEAL #30 tab 12/29/17 Losartan Potassium [Cozaar 25 mg 25 mg PO DAILY #30 tab 12/29/17 (*)] Albuterol Hfa Anes Only [Proair 2 puffs IH QID PRN #1 mdi 01/23/18 Hfa Icu (*)] Benzonatate [Tessalon Pearles (RX)] 100 mg PO TID PRN #20 cap 01/23/18 Prozac 10 MG (*) 01/23/18 Levaquin 02/04/18 Medical Decision Making - Diagnostics Imaging Results: Imaging Impressions Chest X-Ray 02/04/18 13:09 Impression: Normal chest. ED Course/Re-evaluation: The patient presents to the ED with complaints of a chronic cough. I reviewed the patient's past medical records including his hospitalization from December 2017. Patient's vital signs are stable in the emergency department. His EKG demonstrates no evidence of an acute arrhythmia. The patient's chest x-ray demonstrates no evidence of pneumonia. His proBNP does not suggest CHF. The patient's troponin is normal. The patient was seen by case management and they arranged for a follow-up appointment with pulmonology on March 11. At this point time I see no evidence of an acute emergency. The patient has had 2 CT pulmonary angiograms in the past month for evaluation of PE. The patient will be encouraged to continue to use his albuterol. He is currently not on an CHELSIE-inhibitor. The patient is advised to follow up with his primary care provider at [facility]. Differential Diagnosis: Differential diagnosis considered includes asthma, bronchitis, pneumonia, medication side effect, congestive heart failure, pulmonary embolism - Data Points Laboratory Results: Laboratory Results 02/04/18 13:20 02/04/18 13:20 02/04/18 02/04/18 02/04/18 13:24 13:20 13:20 WBC 7.34 10^3/uL 10^3/uL (3.80-9.50) RBC 5.11 10^6/uL 10^6/uL (4.40-6.38) Hgb 15.6 g/dL g/dL (13.7-17.5) Hct 46.2 % % (40.0-51.0) MCV 90.4 fL fL (81.5-99.8) MCH 30.5 pg pg (27.9-34.1) MCHC 33.8 g/dL g/dL (32.4-36.7) RDW 13.1 % % (11.5-15.2) Plt Count 151 10^3/uL 10^3/uL (150-400) MPV 10.1 fL fL (8.7-11.7) Neut % (Auto) 71.9 % % (39.3-74.2) Lymph % (Auto) 20.2 % % (15.0-45.0) [place] % (Auto) 5.6 % % (4.5-13.0) Eos % (Auto) 1.9 % % (0.6-7.6) Baso % (Auto) 0.3 % % (0.3-1.7) Nucleat RBC Rel Count 0.0 % % (0.0-0.2) Absolute Neuts (auto) 5.28 10^3/uL 10^3/uL (1.70-6.50) Absolute Lymphs (auto) 1.48 10^3/uL 10^3/uL (1.00-3.00) Absolute Monos (auto) 0.41 10^3/uL 10^3/uL (0.30-0.80) Absolute Eos (auto) 0.14 10^3/uL 10^3/uL (0.03-0.40) Absolute Basos (auto) 0.02 10^3/uL 10^3/uL (0.02-0.10) Absolute Nucleated RBC 0.00 10^3/uL 10^3/uL (0-0.01) Immature Gran % 0.1 % % (0.0-1.1) Immature Gran # 0.01 10^3/uL 10^3/uL (0.00-0.10) Sodium 140 mEq/L mEq/L (135-145) Potassium 4.1 mEq/L mEq/L (3.3-5.0) Chloride 104 mEq/L mEq/L (97-110) Carbon Dioxide 28 mEq/l mEq/l (22-31) Anion Gap 8 mEq/L mEq/L (8-16) BUN 15 mg/dL mg/dL (7-23) Creatinine 0.9 mg/dL mg/dL (0.7-1.3) Estimated GFR > 60 Glucose 142 mg/dL H mg/dL (70-100) Calcium 9.3 mg/dL mg/dL (8.5-10.4) POC Troponin I 0.00 ng/mL ng/mL (0.00-0.08) NT-Pro-B Natriuret Pep 605 pg/mL H pg/mL (0-125) Point of Care Test Results: Chemistry 02/04/18 13:24 POC Troponin I 0.00 ng/mL ng/mL (0.00-0.08) Departure - Departure Disposition: Home, Routine, Self-Care Clinical Impression: Chronic cough Condition: Good Instructions: Chronic Cough (ED) Additional Instructions: You have an appointment on Saturday03/11/18 at 2:15pm with Dr Mendoza at [facility] at [address], [place]. Please call [phone] if you need to reschedule. Please follow up with your primary care provider at [facility]. Your workup in the emergency department today demonstrates no evidence of a significant pneumonia, heart failure, arrhythmia or other pulmonary condition. Please continue to use your albuterol inhaler 4 times a day. Referrals: Lee Mendoza MD [Medical Doctor] - As per Instructions Ludy Jose [Primary Care Provider] - As per Instructions
[2018-02-04 13:32] LABS: PLATELET COUNT 151 10^3/uL (150-400)
--- NOTE | 2018-02-04 14:10 | CPEKG ---
Test Reason : OPEN Blood Pressure : / mmHG Vent. Rate : 096 BPM Atrial Rate : 097 BPM P-R Int : 150 ms QRS Dur : 100 ms QT Int : 397 ms P-R-T Axes : 043 046 027 degrees QTc Int : 502 ms Sinus rhythm Confirmed by Lee Fitzgerald ([id number]) on 02/04/2018 2:09:47 PM Referred By: Confirmed By:Lee Fitzgerald
[2018-02-04 14:22] VITALS: BP 131/97
--- NOTE | 2018-02-04 15:19 | ASMTCMCOM ---
CM Note CM Note Notes: Requested to assist with getting patient an appointment with pulmonology for further evaluation of his chronic cough, etc. This CM was able to get pt an appt on . 03/11/18 at 2:15pm w/ the on-call industrial waste inspector Dr Jos Mendoza at [facility] ([phone]; f:[phone]); CM faxed referral via joiz). ED MD aware and okay w/appt being more than a month out. Spoke w/pt and he is agreeable to following up w/Dr Mendoza and appreciative of the appt. We discussed him continuing to follow up with his PCP Ludy Jose at [facility]. Pt seemed frustrated, saying "I've been there twice in the last week, they keep sending me here." This CM called and left a voicemail w/PC to relay information and request pt follow-up w/them again sometime before his 03/11 appt w/Dr Mendoza; have not heard back yet. Per past ED CM report notes, pt has been enrolled with [employer] [facility] halfway program and was possibly getting an apartment soon. This CM unable to confirm this before pt was discharged. CM available for further assistance if needed. Date Signed: 02/04/2018 03:14 PM Electronically Signed By:Katharine Martinez RN
== END 2018-02-04 14:32 | disposition home or self-care (01) ==
DX: R05 Cough (principal); Z87.891 Personal history of nicotine dependence
CPT/HCPCS: 84484-PO